=== PATIENT | female | born 1975 | race Caucasian/White ===

== ENCOUNTER 2020-09-18 07:32 | Outpatient (REF) | payer OTHER, SELFPAY ==
--- NOTE | ~2020-09-18 | MM_ITS ---
EXAMINATION: MM SCREENING DIGITAL BREAST TOMOSYNTHESIS, BILATERAL CLINICAL INFORMATION: Screening. Asymptomatic. The lifetime risk of breast cancer based on the Tyrer-Cuzick Model is 11%. COMPARISON: Mammography: September 13, 2019 and studies dating back to August 27, 2009 TECHNIQUE: Digital breast tomosynthesis is performed in both the craniocaudal and mediolateral oblique views along with computer-aided detection (CAD). Synthesized 2D images are generated from the tomosynthesis. FINDINGS: There are scattered areas of fibroglandular density (ACR BI-RADS breast composition Category b). There are no significant masses, abnormal calcifications, or other abnormalities. MM/MM tomosynthesis screening BI IMPRESSION: There are no significant changes from prior study. ASSESSMENT: BI-RADS 1: Negative RECOMMENDATION: Routine annual mammography screening. This patient's information was entered into a reminder system with a target due date for their next mammogram.
== END 2020-09-18 07:33 | disposition home or self-care (01) ==
LOC: HO.MAMMO 07:32
PROVIDERS: PCP Physician Assistant; Visit Provider Physician Assistant
DX: Z12.31 Encounter for screening mammogram for malignant neoplasm of breast (principal)
CPT/HCPCS: 77063; 77067

== ENCOUNTER → 2020-11-18 08:26 | Outpatient (BNVA) | payer OTHER, SELFPAY | PROVIDERS: PCP Physician Assistant; Visit Provider Advanced Practice Midwife ==

== ENCOUNTER 2021-02-05 08:52 | Outpatient (REF) | payer OTHER, SELFPAY ==
[2021-02-05 09:31] LABS: MANUAL DIFF FLAG NO
[2021-02-05 09:33] LABS: Basophils Percent Auto 0.5 % (0-2); Eosinophils Absolute Auto 0.1 X10*3/uL (0.0-0.4); Eosinophils Percent Auto 2.1 % (0-4); Hematocrit 41.2 % (37-47); Hemoglobin 13.5 g/dl (12.0-16.0); Imm Gran Abs Auto 0.01 X10*3/uL (0.00-0.03); Imm Gran Pct Auto 0.2 % (0.0-0.4); Lymphocytes Absolute Auto 0.9 X10*3/uL (1.2-4.9); Lymphocytes Percent Auto 16.2 % (20-40); Mean Corpuscular HGB Conc 32.8 g/dl (31.0-35.0); Mean Corpuscular Hemoglobin 29.7 pg (27.0-33.0); Mean Corpuscular Volume 90.5 fL (80-98); Mean Platelet Volume 11.8 fL (9.4-12.3); Monocytes Absolute Auto 0.3 X10*3/uL (0.1-1.2); Monocytes Percent Auto 4.8 % (2-11); Neutrophils Absolute Auto 4.3 X10*3/uL (2.0-8.3); Neutrophils Percent Auto 76.2 % (45-73); Platelet Count 159 X10*3/uL (160-400); Red Blood Count 4.55 X10*6/uL (4.20-5.50); Red Cell Distribution Width 12.8 % (11.0-16.0); White Blood Count 5.7 X10*3/uL (4.8-10.8)
[2021-02-05 11:12] LABS: Alanine Aminotransferase 14 U/L (0-31); Albumin Level 4.4 g/dL (3.5-5.0); Alkaline Phosphatase 77 U/L (39-117); Anion Gap 14 (12-20); Aspartate Amino Transferase 14 U/L (5-31); Bilirubin Total 0.8 mg/dL (0.0-1.0); Blood Urea Nitrogen 20 mg/dL (9-16); Calcium 9.6 mg/dL (8.4-10.2); Carbon Dioxide 26 mmol/L (22-29); Chloride 105 mmol/L (96-108); Cholesterol 287 mg/dL; Estimated Glomerular Filt Rate > 60; Glucose Random 103 mg/dL (60-115); HDL Cholesterol 80 mg/dL; LDL Cholesterol Calculated 186 mg/dl; Potassium 4.4 mmol/L (3.3-5.1); Sodium 141 mmol/L (135-145); Total Protein 7.3 g/dL (6.5-8.0); Triglycerides 108 mg/dL
[2021-02-05 11:13] LABS: Thyroid Stimulating Hormone 1.18 uIU/mL (0.32-4.0)
== END 2021-02-05 08:53 | disposition home or self-care (01) ==
LOC: HO.LAB 08:52
PROVIDERS: PCP Physician Assistant; Visit Provider Physician Assistant
DX: Z00.00 Encounter for general adult medical examination without abnormal findings (principal); E03.9 Hypothyroidism, unspecified
CPT/HCPCS: 36415; 80053; 80061; 84443; 85025

== ENCOUNTER 2021-02-06 12:18 | Outpatient (REF) | payer OTHER, SELFPAY ==
[2021-02-06 14:14] LABS: Glucose Urine UA NEG (NEG); Leukocyte Esterase Urine TRACE (NEG); Nitrite Urine NEG (NEG); UACC Culture Trigger YES; Urine Blood TRACE (NEG); Urine Ketones NEG (NEG); Urine Protein NEG (NEG-TRACE)
[2021-02-06 14:18] LABS: Appearance Urine CLEAR; Color Urine YELLOW
[2021-02-06 14:41] LABS: Bacteria Urine 4+ /LPF; RBC Urine 0-2 /HPF (0); Squamous Epithelial Cell Urine TRACE /LPF
== END 2021-02-06 12:19 | disposition home or self-care (01) ==
LOC: HO.LAB 12:18
PROVIDERS: PCP Physician Assistant; Visit Provider Physician Assistant
DX: N39.0 Urinary tract infection, site not specified (principal)
CPT/HCPCS: 81001; 81003; 87086; 87088; 87186

== ENCOUNTER 2021-05-25 07:48 | Outpatient (REF) | payer OTHER, SELFPAY ==
[2021-05-25 09:02] LABS: Alanine Aminotransferase 27 U/L (0-31); Aspartate Amino Transferase 24 U/L (5-31); Cholesterol 230 mg/dL; HDL Cholesterol 76 mg/dL; LDL Cholesterol Calculated 137 mg/dl; Triglycerides 86 mg/dL
[2021-05-25 09:03] LABS: Estimated Average Glucose 100 mg/dL; Hemoglobin A1c % 5.1 %
== END 2021-05-25 07:49 | disposition home or self-care (01) ==
LOC: HO.LAB 07:48
PROVIDERS: Visit Provider Physician Assistant
DX: E78.5 Hyperlipidemia, unspecified (principal); R73.9 Hyperglycemia, unspecified
CPT/HCPCS: 36415; 80061; 83036; 84450; 84460

== ENCOUNTER 2021-09-29 16:48 | Outpatient (REF) | payer OTHER, SELFPAY ==
[2021-09-29 17:59] LABS: Lithium 0.22 mmol/L (0.60-1.20)
[2021-09-29 18:06] LABS: Blood Urea Nitrogen 21 mg/dL (9-16); Estimated Glomerular Filt Rate > 60
== END 2021-09-29 16:49 | disposition home or self-care (01) ==
LOC: HO.LAB 16:48
PROVIDERS: Visit Provider Psychiatry & Neurology Psychiatry
DX: E03.9 Hypothyroidism, unspecified (principal); Z51.81 Encounter for therapeutic drug level monitoring; Z79.899 Other long term (current) drug therapy
CPT/HCPCS: 36415; 80178; 82565; 84443; 84520

== ENCOUNTER 2021-12-30 09:27 | Outpatient (REF) | payer OTHER, SELFPAY ==
[2021-12-31 08:38] LABS: BV Int Neg Control Negative (Negative); BV Int Pos Control Positive (Positive)
[2022-01-07 06:46] LABS: HPV mRNA E6/E7 rflx Not Detected (Not Detected)
== END 2021-12-30 09:28 | disposition home or self-care (01) ==
LOC: HO.LAB 09:27
PROVIDERS: Visit Provider Advanced Practice Midwife
DX: Z01.419 Encounter for gynecological examination (general) (routine) without abnormal findings (principal); Z11.51 Encounter for screening for human papillomavirus (HPV); N89.8 Other specified noninflammatory disorders of vagina
CPT/HCPCS: 87480; 87491; 87510; 87591; 87624; 87660; 88142

== ENCOUNTER 2022-01-19 07:42 | Outpatient (REF) | payer OTHER, SELFPAY ==
--- NOTE | ~2022-01-19 | MM_ITS ---
EXAMINATION: MM SCREENING DIGITAL BREAST TOMOSYNTHESIS, BILATERAL CLINICAL INFORMATION: Screening. Asymptomatic. The lifetime risk of breast cancer based on the Tyrer-Cuzick Model is 10%. COMPARISON: Mammography: 09/18/2020, 09/13/2019, 09/05/2018 TECHNIQUE: Digital breast tomosynthesis is performed in both the craniocaudal and mediolateral oblique views along with computer-aided detection (CAD). Synthesized 2D images are generated from the tomosynthesis. Additional left MLO view is provided. FINDINGS: There are scattered areas of fibroglandular density (ACR BI-RADS breast composition Category b). There are no significant masses, abnormal calcifications, or other abnormalities. Parenchymal pattern is similar to prior studies. MM/MM tomosynthesis screening BI IMPRESSION: No mammographic evidence of malignancy. ASSESSMENT: BI-RADS 1: Negative RECOMMENDATION: Routine annual mammography screening. This patient's information was entered into a reminder system with a target due date for their next mammogram.
== END 2022-01-19 07:43 | disposition home or self-care (01) ==
LOC: HO.MAMMO 07:42
PROVIDERS: Visit Provider Physician Assistant
DX: Z12.31 Encounter for screening mammogram for malignant neoplasm of breast (principal)
CPT/HCPCS: 77063; 77067

== ENCOUNTER 2022-04-22 08:07 | Outpatient (REF) | payer OTHER, SELFPAY ==
[2022-04-22 08:30] LABS: MANUAL DIFF FLAG NO
[2022-04-22 08:47] LABS: Basophils Absolute Auto 0.1 X10*3/uL (0.0-0.2); Basophils Percent Auto 0.8 % (0-2); Eosinophils Absolute Auto 0.2 X10*3/uL (0.0-0.4); Eosinophils Percent Auto 2.9 % (0-4); Hematocrit 38.7 % (37.0-47.0); Hemoglobin 12.2 g/dl (12.0-16.0); Imm Gran Abs Auto 0.02 X10*3/uL (0.00-0.03); Imm Gran Pct Auto 0.3 % (0.0-0.4); Lymphocytes Percent Auto 15.1 % (20-40); Mean Corpuscular HGB Conc 31.5 g/dl (31.0-35.0); Mean Corpuscular Hemoglobin 27.2 pg (27.0-33.0); Mean Corpuscular Volume 86.4 fL (80.0-98.0); Mean Platelet Volume 11.8 fL (9.4-12.3); Monocytes Absolute Auto 0.4 X10*3/uL (0.1-1.2); Monocytes Percent Auto 5.6 % (2-11); Neutrophils Percent Auto 75.3 % (45-73); Platelet Count 190 X10*3/uL (160-400); Red Blood Count 4.48 X10*6/uL (4.20-5.50); Red Cell Distribution Width 14.8 % (11.0-16.0); White Blood Count 6.6 X10*3/uL (4.8-10.8)
[2022-04-22 09:51] LABS: Alanine Aminotransferase 12 U/L (0-31); Albumin Level 4.2 g/dL (3.5-5.0); Alkaline Phosphatase 81 U/L (39-117); Anion Gap 16 (12-20); Aspartate Amino Transferase 14 U/L (5-31); Bilirubin Total 0.4 mg/dL (0.0-1.0); Blood Urea Nitrogen 18 mg/dL (9-16); Calcium 9.2 mg/dL (8.4-10.2); Carbon Dioxide 23 mmol/L (22-29); Chloride 106 mmol/L (96-108); Cholesterol 222 mg/dL; Estimated Glomerular Filt Rate > 60; Glucose Random 107 mg/dL (60-115); HDL Cholesterol 75 mg/dL; LDL Cholesterol Calculated 121 mg/dl; Potassium 4.6 mmol/L (3.3-5.1); Sodium 140 mmol/L (135-145); Total Protein 7.1 g/dL (6.5-8.0); Triglycerides 132 mg/dL
[2022-04-22 10:15] LABS: TSH reflex Free T4 3.32 uIU/mL (0.32-4.0)
== END 2022-04-22 08:08 | disposition home or self-care (01) ==
LOC: HO.LAB 08:07
PROVIDERS: PCP Physician Assistant; Visit Provider Physician Assistant
DX: Z00.00 Encounter for general adult medical examination without abnormal findings (principal); E78.5 Hyperlipidemia, unspecified; E03.9 Hypothyroidism, unspecified; R73.9 Hyperglycemia, unspecified
CPT/HCPCS: 36415; 80053; 80061; 84443; 85025

== ENCOUNTER 2022-05-10 07:21 | Outpatient (REF) | payer OTHER, SELFPAY ==
--- NOTE | ~2022-05-10 | XR_ITS ---
EXAMINATION: XR KNEES, BILATERAL STANDING AP XR KNEE, RIGHT CLINICAL INFORMATION: Knee pain COMPARISON: None TECHNIQUE: Bilateral standing AP view of both knees is performed along with lateral and axial patella views of the right knee. FINDINGS: Right: No fracture, dislocation, destructive process. Normal bony mineralization. No joint narrowing or erosive change or chondrocalcinosis. Axial view patella shows no lateralization or joint narrowing. There is a probable small suprapatellar effusion with mild thickening of the suprapatellar bursa. Hoffa's fat pad appears normal. Left: No fracture, dislocation, or destructive process. Normal bony mineralization. No joint narrowing, erosive change, or chondrocalcinosis. XR/XR knee RT 2V IMPRESSION: Right: -Suspect small suprapatellar effusion. -No joint narrowing or erosive change. Left: -Unremarkable.
--- NOTE | ~2022-05-10 | XR_ITS ---
EXAMINATION: XR KNEES, BILATERAL STANDING AP XR KNEE, RIGHT CLINICAL INFORMATION: Knee pain COMPARISON: None TECHNIQUE: Bilateral standing AP view of both knees is performed along with lateral and axial patella views of the right knee. FINDINGS: Right: No fracture, dislocation, destructive process. Normal bony mineralization. No joint narrowing or erosive change or chondrocalcinosis. Axial view patella shows no lateralization or joint narrowing. There is a probable small suprapatellar effusion with mild thickening of the suprapatellar bursa. Hoffa's fat pad appears normal. Left: No fracture, dislocation, or destructive process. Normal bony mineralization. No joint narrowing, erosive change, or chondrocalcinosis. XR/XR knee standing BI IMPRESSION: Right: -Suspect small suprapatellar effusion. -No joint narrowing or erosive change. Left: -Unremarkable.
== END 2022-05-10 07:22 | disposition home or self-care (01) ==
LOC: HO.HOSX 07:21
PROVIDERS: Visit Provider Physician Assistant
DX: M25.561 Pain in right knee (principal); M25.562 Pain in left knee
CPT/HCPCS: 73560; 73565

== ENCOUNTER 2022-08-05 09:30 | Outpatient (RCR) | payer OTHER, SELFPAY ==
--- NOTE | 2022-06-25 16:16 | MHC.OT.EP ---
[address] [phone] Occupational Therapy Plan of Care Date of Evaluation: 06/25/22 Diagnosis: Left lateral epicondylits Assessment: Pt is a 46 yo female with a recent onset of left elbow pain carrying a heavy bag down by her side. Today she presents with S+S consistent with her diagnosis of lateral epicondylitis. She reports some improvement in pain with Naproxen however prefers not taking medication She reports an ergonomic set up with her work station that sounds appropriate and she is unable to identify any specific aggravating activity Her goal is to sleep thru the night without elbow pain She will benefit from OT to address these problems Frequency and Duration: The patient will be seen 3x wk x 4 wks Short Term Goals: Demo awareness of elbow protection techniques with daily activities Demo indep with HEP Tolerate eccentric wrist extension ther ex Report mild difficulty with sleeping with use on night pillow splint Prison Goals: Dec left elbow pain to occassional Left devulcanizer loader strength to > 40 lb Sleep not interrupted with elbow pain Use of left hand to wash back and fasten bra Treatment Plan: Therapeutic Exercise Therapeutic Activity Home Exercise Program Patient Education ADL Training Ultrasound Iontophoresis Soft Tissue Mobilization Pt on vacation Electronically Signed By: Kathe Garcia OT CHT CLT Please Sign and return to therapist. Thank you once again for your referral.
--- NOTE | 2022-08-05 10:34 | MHC.OT.DC ---
[address] [phone] F: [phone] Occupational Therapy Discharge Note Provider: Truman Abdi Diagnosis: Left lateral epicondylits Date of Surgery: Date of Evaluation: 06/25/22 Date of Discharge: 08/05/22 Treatments to Date: 8 Cancellations to Date: 0 No Shows to Date: 0 Discharge Status: Achieved Goals Improved Function Independent with HEP Discharge Summary: Pain improving. Pt is indep with her HEP and self management technique. Left elbow pain continues to be aggravated with reach and talent consultant or pinching Goals met for pain , talent consultant strength , indep and tolerance with eccentric strengthening exercises and elbow protection with daily activities I anticipate continued improvement with pt self management. Electronically Signed By: Kathe Garcia OT CHT CLT Reviewed/agree with student documentation: N/A Therapist: Please Sign and return to therapist, thank you for your referral.
== END 2022-08-05 10:35 | disposition home or self-care (01) ==
LOC: HO.OT 09:30
PROVIDERS: PCP Physician Assistant; Visit Provider Physician Assistant
DX: M77.12 Lateral epicondylitis, left elbow (principal)
CPT/HCPCS: 97033; 97035; 97110; 97140; 97165

== ENCOUNTER 2022-10-29 13:13 | Outpatient (REF) | payer OTHER, SELFPAY ==
[2022-10-30 11:34] LABS: BV Int Neg Control Negative (Negative); BV Int Pos Control Positive (Positive)
== END 2022-10-29 13:14 | disposition home or self-care (01) ==
LOC: HO.LNP 13:13
PROVIDERS: PCP Physician Assistant; Visit Provider Advanced Practice Midwife
DX: R10.2 Pelvic and perineal pain (principal); N89.8 Other specified noninflammatory disorders of vagina
CPT/HCPCS: 87480; 87510; 87660

== ENCOUNTER 2023-02-01 08:56 | Outpatient (AMB) | payer OTHER, SELFPAY ==
--- NOTE | 2023-02-01 08:58 | A.OFFVIS_ITS ---
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 Scribed for DELANO Talavera by Krissy Humphrey behavioral medical director, on 02/01/2023 at 9:11 am EST. Brine Plant Operator: Brine Plant Operator Present (Caren) Allergies No Known Allergies [No Known Allergies*] Allergy (Verified 02/01/23 08:59) Is last menstrual period known: Yes Last menstrual period: 01/11/23 HPI HPI Comments History of Present Illness Details She is a premenopausal woman presenting for annual exam. She reports external itching, and rash under her breasts. Patient admits she tries to eat a healthy diet including Calcium and Vitamin D. She stays active with exercise. Currently not sexually active, Doing well with OCP's and wants to continue with use. Denies family hx of colon and ovarian cancer. Last pap smear 12/30/21. Last mammogram 01/19/22. Cologaurd recently done. She denies any contraindications to control such as: migraines with aura, history of DVT or pulmonary emboli, high blood pressure, liver disease, thrombolic disorders, Lupus, +ALICE, or smoking. Reviewed use, side effects and warnings including ACHES. PFSH Medical History ADHD Anemia History of depression Hypothyroid Surgical History Hx of section S/P anal fissurectomy Family History Family/Other Breast cancer Social History Household Members: Spouse and Family Household Members Other:: , and twins Alcohol intake: never Patient Tobacco Use Status: Never used Tobacco Sexual orientation: Straight/Heterosexual Gender identity: Female Female Reproductive History Menstrual Age of Menarche: 9 Date of last menstrual period: 01/11/23 control method: pills Total pregnancies: 1 Number of Living Children: 2 Multiple births: 1 Date of last pap smear: 12/30/21 (neg pap and hpv) Date of Mammogram: 01/19/22 Physical Exam Vital Signs: Last Vital Signs BP 100/60 02/01/23 08:59 BMI result Body Mass Index 39.1 Const General: cooperative, healthy appearing, no acute distress, well developed and alert Orientation/consciousness: patient oriented x3 HEENT Head: Yes normal to inspection Eyes General: appearance normal, both eyes and all related structures Neck Neck: Yes normal visual inspection Thyroid: Thyroid normal Chest Other: fungal rash under each breast Chest palpation & inspection: normal inspection of the chest Breast/axilla inspection: normal inspection of the breasts (no puckering, dimpling, peau de orange, retraction, discharge, masses) Breast/axilla palpation: normal palpation of the breasts Resp Effort & Inspection: normal respiratory effort GI Inspection: Yes normal to inspection Palpation (GI): Soft to palpation (to palpation) Rectal Exam - Female: deferred Other: labial fungal rash General: Yes bladder normal to inspection External Female Exam: normal external appearance and normal appearance of the urethra Speculum Exam - Vagina: normal appearance of the vagina, normal palpation and abnormal vaginal discharge yellow (creamy) Speculum Exam - Cervix: normal appearance of the cervix and normal palpation Bimanual exam- vagina & uterus: normal palpation and normal palpation Bimanual Exam- Adnexa, other: normal adnexae and no masses Skin General skin exam: no rashes or lesions noted Neuro General: patient oriented x3 Cognition (Neuro): normal cognition Extrem General: Yes normal to inspection Psych Attitude: cooperative Thought process: Normal thought process present Assessment & Plan Assessment & Plan (1) Encounter for annual routine gynecological examination: Code(s): Z01.419 - Encounter for gynecological examination (general) (routine) without abnormal findings Plan: Discussed: Current recommendations for pap smears per ASCCP guidelines Breast awareness and periodic self breast exams. Maintaining a healthy lifestyle including a well balanced diet and routine exercise. Continue BC. Advised to clean with water only, no soaps to the area, dry well and wear cotton underwear. Rx. medication. BV testing done today. Await results and treat accordingly. All of her questions and concerns were addressed to the best of my ability. RTO in one year for AG. (2) Contraceptive surveillance: Code(s): Z30.40 - Encounter for surveillance of contraceptives, unspecified Orders: Orders Bacterial Vaginosis Panel Today N89.8 - Other specified noninflammatory disorders of vagina Medications: New clotrimazole-betamethasone 1-0.05 % 1 appl topical BID PRN 45 grams 2RF itching 7 days Refilled norethindrone-ethin estradiol 0.4-35 mg-mcg dispense 3 packs at a time 1 tab PO DAILY 84 tabs 4RF 84 days Coding Level of Care Code Est Pt Prev Care 40-64y(57861) Diagnoses Encounter for annual routine gynecological examination Z01.419 Contraceptive surveillance Z30.40
[2023-02-01 08:59] VITALS: BP 100/60; BMI 39.1
== END 2023-02-01 09:34 | disposition home or self-care (01) ==
LOC: HO.HWS 08:56
PROVIDERS: PCP Physician Assistant; Visit Provider Advanced Practice Midwife
DX: Z01.419 Encounter for gynecological examination (general) (routine) without abnormal findings (principal)
CPT/HCPCS: 99396

== ENCOUNTER 2023-02-01 08:56 | Outpatient (REF) | payer OTHER, SELFPAY ==
[2023-02-02 14:54] LABS: BV Int Neg Control Negative (Negative); BV Int Pos Control Positive (Positive)
== END 2023-02-01 08:57 | disposition home or self-care (01) ==
LOC: HO.LAB 08:56
PROVIDERS: PCP Physician Assistant; Visit Provider Advanced Practice Midwife
DX: Z01.419 Encounter for gynecological examination (general) (routine) without abnormal findings (principal); N89.8 Other specified noninflammatory disorders of vagina; R21 Rash and other nonspecific skin eruption
CPT/HCPCS: 87480; 87510; 87660

== ENCOUNTER 2023-04-13 08:27 | Outpatient (REF) | payer OTHER, SELFPAY | END 2023-04-13 08:28 | disposition home or self-care (01) | LOC: HO.MAMMO 08:27 | PROVIDERS: PCP Physician Assistant; Visit Provider Physician Assistant | DX: Z12.31 Encounter for screening mammogram for malignant neoplasm of breast (principal) | CPT/HCPCS: 77063; 77067 ==

== ENCOUNTER → 2023-04-13 08:30 | Outpatient (BNV) | payer OTHER, SELFPAY | PROVIDERS: PCP Physician Assistant; Visit Provider Radiology Diagnostic Radiology | DX: Z12.31 Encounter for screening mammogram for malignant neoplasm of breast (principal) | CPT/HCPCS: 77063; 77067 ==

== ENCOUNTER 2023-05-11 08:05 | Outpatient (REF) | payer OTHER, SELFPAY ==
[2023-05-11 08:50] LABS: MANUAL DIFF FLAG NO
[2023-05-11 09:05] LABS: Basophils Percent Auto 0.6 % (0-2); Eosinophils Absolute Auto 0.2 X10*3/uL (0.0-0.4); Hematocrit 42.3 % (37.0-47.0); Hemoglobin 13.3 g/dl (12.0-16.0); Imm Gran Abs Auto 0.01 X10*3/uL (0.00-0.03); Imm Gran Pct Auto 0.2 % (0.0-0.4); Lymphocytes Absolute Auto 0.9 X10*3/uL (1.2-4.9); Lymphocytes Percent Auto 14.1 % (20-40); Mean Corpuscular HGB Conc 31.4 g/dl (31.0-35.0); Mean Corpuscular Hemoglobin 28.9 pg (27.0-33.0); Mean Platelet Volume 11.5 fL (9.4-12.3); Monocytes Absolute Auto 0.3 X10*3/uL (0.1-1.2); Monocytes Percent Auto 4.6 % (2-11); Neutrophils Absolute Auto 4.9 x10*3/uL (2.0-8.3); Neutrophils Percent Auto 77.5 % (45-73); Platelet Count 176 X10*3/uL (160-400); Red Cell Distribution Width 13.3 % (11.0-16.0); White Blood Count 6.3 X10*3/uL (4.8-10.8)
[2023-05-11 10:02] LABS: Alanine Aminotransferase 19 U/L (0-31); Albumin Level 4.3 g/dL (3.5-5.0); Alkaline Phosphatase 79 U/L (39-117); Anion Gap 16 (12-20); Aspartate Amino Transferase 17 U/L (5-31); Bilirubin Total 0.6 mg/dL (0.0-1.0); Blood Urea Nitrogen 16 mg/dL (9-16); Calcium 9.7 mg/dL (8.4-10.2); Carbon Dioxide 25 mmol/L (22-29); Chloride 105 mmol/L (96-108); Cholesterol 302 mg/dL (<200); Estimated Glomerular Filt Rate > 60; Glucose Random 110 mg/dL (60-115); HDL Cholesterol 87 mg/dL (>40); LDL Cholesterol Calculated 186 mg/dL (<100); Potassium 4.5 mmol/L (3.3-5.1); Sodium 141 mmol/L (135-145); Total Protein 7.5 g/dL (6.5-8.0); Triglycerides 149 mg/dL (<150)
[2023-05-11 10:19] LABS: Vitamin B12 424 pg/mL (200-900)
[2023-05-11 10:21] LABS: Thyroid Stimulating Hormone 2.48 uIU/mL (0.32-4.0)
[2023-05-11 10:23] LABS: Appearance Urine Clear; Color Urine Yellow; Glucose Urine UA Negative (Negative); Leukocyte Esterase Urine Small (1+) (Negative); Nitrite Urine Negative (Negative); PH 5.5 (5.0-9.0); Specific Gravity - Urine 1.025 (1.005-1.025); UMIC TRIGGER UA YES; Urine Blood Trace (Negative); Urine Ketones Negative (Negative); Urine Protein Negative (Neg-Trace)
[2023-05-11 10:39] LABS: Bacteria Urine None Seen (None Seen); Hyaline Casts Urine 0-2 /LPF (0-2); RBC Urine 0-2 /HPF (0-2); WBC Urine 0-5 /HPF (0-5)
== END 2023-05-11 08:06 | disposition home or self-care (01) ==
LOC: HO.LAB 08:05
PROVIDERS: PCP Physician Assistant; Visit Provider Physician Assistant
DX: Z00.00 Encounter for general adult medical examination without abnormal findings (principal); R53.83 Other fatigue; E03.9 Hypothyroidism, unspecified
CPT/HCPCS: 36415; 80053; 80061; 81001; 82607; 84443; 85025

== ENCOUNTER 2023-08-02 08:09 | Outpatient (REF) | payer OTHER, SELFPAY ==
[2023-08-02 09:44] LABS: Alanine Aminotransferase 23 U/L (0-31); Aspartate Amino Transferase 21 U/L (5-31); Cholesterol 208 mg/dL (<200); HDL Cholesterol 81 mg/dL (>40); LDL Cholesterol Calculated 110 mg/dL (<100); Triglycerides 87 mg/dL (<150)
[2023-08-02 10:01] LABS: Thyroid Stimulating Hormone 3.78 uIU/mL (0.32-4.0)
== END 2023-08-02 08:10 | disposition home or self-care (01) ==
LOC: HO.LAB 08:09
PROVIDERS: Visit Provider Physician Assistant
DX: E03.9 Hypothyroidism, unspecified (principal); E78.5 Hyperlipidemia, unspecified
CPT/HCPCS: 36415; 80061; 84443; 84450; 84460

== ENCOUNTER 2023-10-11 09:58 | Outpatient (AMB) | payer OTHER, SELFPAY ==
--- NOTE | 2023-10-11 10:03 | A.OFFVIS_ITS ---
Intake Vital Signs 10/11/23 10:04 Height 5 ft 3 in Weight 228 lb BMI 40.4 BP 94/60 Intake Visit Reasons: itchy Logistics And Planning Manager: Logistics And Planning Manager Present (Caren) Allergies No Known Allergies [No Known Allergies*] Allergy (Verified 10/11/23 10:04) HPI HPI Comments History of Present Illness Details Patient is here today with external itching, she denies any recent antibiotics or soap changes. Not currently sexually active. Denies any pelvic pain or urinary symptoms. PFSH Medical History ADHD Anemia History of depression Hypothyroid Surgical History S/P anal fissurectomy Hx of section Family History Family/Other Breast cancer Social History Household Members: Spouse and Family Household Members Other:: , and twins Alcohol intake: never Patient Tobacco Use Status: Never used Tobacco Sexual orientation: Straight/Heterosexual Gender identity: Female Female Reproductive History Menstrual Age of Menarche: 9 Review of Systems Const All systems reviewed & are unremarkable except as noted in HPI and below Physical Exam Vital Signs: Last Vital Signs BP 94/60 10/11/23 10:04 BMI result Body Mass Index 40.4 Const General: cooperative, healthy appearing and no acute distress Orientation/consciousness: patient oriented x3 GI Inspection: Yes normal to inspection Palpation (GI): Soft to palpation and Other GI palpation findings present (Nontender) Rectal Exam - Female: visual inspection normal Other: Vulva erythema appearance of a fungal rash extending to perianal region General: Yes bladder normal to palpation External Female Exam: normal appearance of the urethra Speculum Exam - Vagina: normal appearance of the vagina, normal palpation and normal vaginal discharge Speculum Exam - Cervix: normal appearance of the cervix and normal palpation Bimanual exam- vagina & uterus: normal bimanual exam, normal palpation, uterine size normal, bladder normal to palpation, normal palpation, uterine shape normal and non-tender Bimanual Exam- Adnexa, other: normal adnexae Neuro General: patient oriented x3 Assessment & Plan Assessment & Plan (1) Vulvar pruritus: Code(s): L29.2 - Pruritus vulvae Plan Instructions: Clean with warm water, no soaps, scented products. Use a cool cloth to the area several times a day if swollen and/or uncomfortable. Wear loose, cotton underclothes, avoid tight outer clothing. Air when possible. No coitus until well healed. Complete all medications as prescribed. Await final pending results for any changes in the plan of care. Call the office if there is no improvement in 24-48hrs., or if worsening symptoms. All of her questions and concerns were addressed to the best of my ability and shared decision making. She is agreeable to the plan of care. This note is constructed using voice recognition software. While every effort has been made to ensure accuracy, carpenter streetcar errors may have been included. Orders: Orders Bacterial Vaginosis Panel Today L29.2 - Pruritus vulvae Medications: Changed From clotrimazole-betamethasone 1-0.05 % 1 appl topical BID 7 days PRN 45 grams 2RF itching To clotrimazole-betamethasone 1-0.05 % 1 appl topical BID 45 grams 0RF itching 7 days Coding Level of Care Code Est Pt Level 3 (01218) Diagnoses Vulvar pruritus L29.2
[2023-10-11 10:04] VITALS: BP 94/60; BMI 40.4
== END 2023-10-11 10:29 | disposition home or self-care (01) ==
PROVIDERS: PCP Physician Assistant; Visit Provider Advanced Practice Midwife
DX: L29.2 Pruritus vulvae (principal)
CPT/HCPCS: 99213

== ENCOUNTER 2023-10-11 09:58 | Outpatient (REF) | payer OTHER, SELFPAY ==
[2023-10-12 13:08] LABS: BV Int Neg Control Negative (Negative); BV Int Pos Control Positive (Positive)
== END 2023-10-11 09:59 | disposition home or self-care (01) ==
LOC: HO.LNP 09:58
PROVIDERS: PCP Physician Assistant; Visit Provider Advanced Practice Midwife
DX: L29.2 Pruritus vulvae (principal)
CPT/HCPCS: 87480; 87510; 87660

== ENCOUNTER 2024-02-16 08:52 | Outpatient (AMB) | payer OTHER, SELFPAY ==
--- NOTE | 2024-02-16 08:54 | A.OFFVIS_ITS ---
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 She is doing well with concerns: itching, thinks it's BV, concerned it occurs often. Doing well on [place], wants to continue. She denies any contraindications to control such as: migraines with aura, history of DVT or pulmonary emboli, high blood pressure, liver disease, thrombolic disorders, Lupus, +ALICE, breast cancer, or smoking. Attempting to eat a healthy diet with calcium and vitamin D and stays active with exercise at the [facility]. Currently not sexually active. Last pap smear; 2021. Last mammogram; 2022. Denies any family history of breast, ovarian or colon cancer. [facility] Medical History (Updated 02/16/24 @ 09:47 by Darshana Bruno CNM) ADHD Anemia History of depression Hypothyroid Surgical History S/P anal fissurectomy Hx of section Family History Family/Other Breast cancer Social History Household Members: Spouse and Family Household Members Other:: , and twins Alcohol intake: never Patient Tobacco Use Status: Never used Tobacco Sexual orientation: Straight/Heterosexual Gender identity: Female Female Reproductive History Menstrual Age of Menarche: 9 Duration of menses: 6-7 days Date of last menstrual period: 02/07/24 control method: pills Total pregnancies: 1 Number of Living Children: 2 Multiple births: 1 Date of last pap smear: 12/30/21 (neg pap and hpv) Date of Mammogram: 04/13/23 (Birad 1) Review of Systems Const All systems reviewed & are unremarkable except as noted in HPI and below Reports as per HPI Eyes Reports no additional complaints ENT Reports no additional complaints Card Reports no additional complaints Resp Reports no additional complaints GI Reports as per HPI and Reports no additional complaints Reports as per HPI Musc Reports no additional complaints Skin/Breast Reports as per HPI Neuro Reports no additional complaints Psych Reports no additional complaints Endo Reports no additional complaints Db/Lymph Reports no additional complaints Aller/Immun Reports no additional complaints Physical Exam Vital Signs: Last Vital Signs BP 120/70 02/16/24 08:55 BMI result Body Mass Index 40.0 Const General: cooperative, healthy appearing, no acute distress, well developed and alert Orientation/consciousness: patient oriented x3 HEENT Head: Yes normal to inspection Eyes General: appearance normal, both eyes and all related structures Neck Neck: Yes normal visual inspection Thyroid: Thyroid normal Chest Chest palpation & inspection: normal inspection of the chest and other (no puckering, dimpling, peau de orange, retraction, discharge, masses) Breast/axilla inspection: normal inspection of the breasts (With findings right breast small soft rounded lump at 05:00 o'clock, NT) Breast/axilla palpation: normal palpation of the breasts Resp Effort & Inspection: normal respiratory effort GI Inspection: Yes normal to inspection and Yes scar Palpation (GI): Soft to palpation Rectal Exam - Female: deferred General: Yes bladder normal to palpation External Female Exam: normal external appearance and normal appearance of the urethra Speculum Exam - Vagina: normal appearance of the vagina, normal palpation, normal vaginal discharge and vaginal bleeding (Small amount of brown blood at cervix) Speculum Exam - Cervix: normal appearance of the cervix and normal palpation Bimanual exam- vagina & uterus: normal bimanual exam, normal palpation, uterine size normal, bladder normal to palpation, normal palpation and non-tender Bimanual Exam- Adnexa, other: no masses OB/external & speculum: vaginal bleeding (Small amount of brown blood at cervix) Skin General skin exam: no rashes or lesions noted Rashes: no rashes Neuro General: patient oriented x3 Cognition (Neuro): normal cognition Extrem General: Yes normal to inspection Psych Attitude: cooperative Thought process: Normal thought process present Assessment & Plan Assessment & Plan (1) Encounter for well woman exam with routine gynecological exam: Code(s): Z01.419 - Encounter for gynecological examination (general) (routine) without abnormal findings Category: Medical (2) Breast lump on right side at 5 o'clock position: Code(s): N63.14 - Unspecified lump in the right breast, lower inner quadrant Category: Medical (3) Vaginal itching: Code(s): N89.8 - Other specified noninflammatory disorders of vagina Plan Discussed: Current recommendations for pap smears per ASCCP guidelines. Breast awareness, periodic self breast exams and yearly mammogram. Diagnostic mammogram and right breast ultrasound for evaluation of breast lump 5 o'clock position. Follow up pending results. control hormone use warnings: go to ER if and loss of vision, blindness, severe headache, chest pain or difficulty breathing, severe abdominal pain, or any pain or swelling in an extremity. Maintain a healthy lifestyle, well balanced diet including Calcium 1,200 mg and Vitamin D 600 IU daily, and routine exercise. BV panel obtained, await results for plan of care. Reviewed role of probiotics and vaginal health, copy of boric acid protocol provided. Patient verbalizes understanding and agrees to the plan of care. She was given opportunity to ask questions and all questions were answered to the best of my ability. RTO in 1 year for annual computational mathematician exam. This note is constructed using voice recognition software. While every effort has been made to ensure accuracy, hot metal charger errors may have been included. Orders: Orders Bacterial Vaginosis Panel Today N89.8 - Other specified noninflammatory disorders of vagina MM tomosynthesis diag imp RT Today N63.14 - Unspecified lump in the right breast, lower inner quadrant, Z12.31 - Encounter for screening mammogram for malignant neoplasm of breast US breast RT complete Today N63.14 - Unspecified lump in the right breast, lower inner quadrant Medications: Refilled norethindrone-ethin estradiol 0.4-35 mg-mcg dispense 3 packs at a time 1 tab PO DAILY 84 days 84 tabs 4RF Coding Level of Care Code Est Pt Prev Care 40-64y(10296) Diagnoses Encounter for well woman exam with routine gynecological exam Z01.419 Breast lump on right side at 5 o'clock position N63.14 Vaginal itching N89.8
[2024-02-16 08:55] VITALS: BP 120/70; BMI 40.0
== END 2024-02-16 10:02 | disposition home or self-care (01) ==
PROVIDERS: PCP Physician Assistant; Visit Provider Advanced Practice Midwife
DX: Z01.419 Encounter for gynecological examination (general) (routine) without abnormal findings (principal); N63.14 Unspecified lump in the right breast, lower inner quadrant; N89.8 Other specified noninflammatory disorders of vagina
CPT/HCPCS: 99396

== ENCOUNTER 2024-02-16 08:52 | Outpatient (REF) | payer OTHER, SELFPAY ==
[2024-02-17 10:51] LABS: Bacterial Vaginosis PCR NEGATIVE (Negative); Candida Group PCR NOT DETECTED (Not Detect); Candida glab krusei PCR NOT DETECTED (Not Detect); Trichomonas vaginalis PCR NOT DETECTED (Not Detect)
== END 2024-02-16 08:53 | disposition home or self-care (01) ==
LOC: HO.LAB 08:52
PROVIDERS: PCP Physician Assistant; Visit Provider Advanced Practice Midwife
DX: N89.8 Other specified noninflammatory disorders of vagina (principal)
CPT/HCPCS: 0352U

== ENCOUNTER 2024-03-07 13:56 | Outpatient (REF) | payer OTHER, SELFPAY ==
--- NOTE | ~2024-03-07 | MM_ITS ---
EXAMINATION: MM DIAGNOSTIC DIGITAL BREAST TOMOSYNTHESIS, BILATERAL US BREAST LIMITED, RIGHT MAMMOGRAPHY: CLINICAL INFORMATION: 48-year-old female, palpable abnormality right breast 5:00 axis. Patient also due for yearly. COMPARISON: Mammography: 04/13/2023, 01/19/2022, 09/18/2020, 04/05/2019, 03/04/2017. TECHNIQUE: Digital breast tomosynthesis is performed in both the craniocaudal and mediolateral oblique views along with computer-aided detection (CAD). Synthesized 2D images are generated from the tomosynthesis. In addition Full field 3-D right mediolateral view was also obtained. FINDINGS: There are scattered areas of fibroglandular density (ACR BI-RADS breast composition Category b). There are no suspicious masses, suspicious grouped calcifications, or areas of architectural distortion in either breast. The parenchymal pattern is stable from prior exams. There is no skin or axillary abnormality. There is no mammographic abnormality in the lower inner quadrant right breast. ULTRASOUND: CLINICAL INFORMATION: As above. COMPARISON: None contributory. TECHNIQUE: Targeted sonographic evaluation right breast was performed using a high frequency linear transducer. Attention to the lower inner quadrant was given to include the palpable area of concern. Selected archived documentation. FINDINGS: RIGHT BREAST: There is a mixture of fatty and fibroglandular tissue. No suspicious mass is seen. There is no pathologic acoustic shadowing. No cystic abnormality. No ultrasonographic correlate to the focus of palpable concern 5:00 axis right breast. MM/MM tomosynthesis diagnostic BI IMPRESSION: -There are no findings suspicious for malignancy in either breast. -There is no sonographic or mammographic abnormality to correlate with the palpable focus of concern right breast 5:00 axis. Recommend clinical management of follow-up. -Otherwise recommend the patient resume routine annual screening mammography. OVERALL ASSESSMENT: Mammography: BI-RADS 1 - Negative Ultrasound: BI-RADS 1 - Negative RECOMMENDATION: 1. Patient should be managed based on the clinical impression. 2. Otherwise, routine annual screening mammography. This patient's information was entered into a reminder system with a target due date for their next mammogram. Electronically signed by: Kuldeep Logan MD 03/07/2024 03:52 PM EDT
== END 2024-03-07 13:57 | disposition home or self-care (01) ==
LOC: HO.MAMMO 13:56
PROVIDERS: PCP Physician Assistant; Visit Provider Advanced Practice Midwife
DX: N63.14 Unspecified lump in the right breast, lower inner quadrant (principal)
CPT/HCPCS: 76642; 77062; 77066

== ENCOUNTER → 2024-03-07 14:30 | Outpatient (BNV) | payer OTHER, SELFPAY | PROVIDERS: PCP Physician Assistant; Visit Provider Radiology Diagnostic Radiology | DX: N63.13 Unspecified lump in the right breast, lower outer quadrant (principal) | CPT/HCPCS: 76642; 77062; 77066 ==

== ENCOUNTER 2024-12-06 08:19 | Outpatient (AMB) | payer OTHER, SELFPAY ==
--- NOTE | 2024-12-06 08:21 | MHC.PC.OV ---
Vital Signs 12/06/24 08:29 Height 5 ft 3 in Weight 230 lb 6 oz BMI 40.8 BP 118/68 Blood Pressure Location Rt brachial Position Sitting Respiration 12 Pulse 68 Pulse Source Pulse Oximeter Temp 97.2 F Temp Source Oral Pulse Oximetry (%) 99 Oxygen Delivery Method Room Air Intake Visit Reasons: CPE Intake Note: New patient to establish care and cpe Nuclear Medicine Physician Required: No Allergies No Known Allergies [No Known Allergies*] Allergy (Verified 12/06/24 08:22) Medication List - Last Reconciled 12/06/24 by Antonia Jones, [employer] SUPERVISOR- atorvastatin 20 mg PO DAILY lamotrigine 200 mg PO DAILY levothyroxine 150 mcg PO DAILY lisdexamfetamine (Vyvanse) 20 mg PO DAILY lithium carbonate ER 450 mg PO BEDTIME norethindrone-ethin estradiol 0.4-35 mg-mcg 1 tab PO DAILY 84 days sertraline 25 mg PO DAILY sertraline 200 mg PO DAILY Tobacco use date assessed: 12/06/24 Dental Screening Dental Screen Date: 12/06/24 Did you have a dental visit in the last 12 months?: Yes Did you have a dental problem in the last 6 months where you did not have access to dental care?: No Was dental information given to patient?: Patient has dentist HPI HPI Comments History of Present Illness Details 49 y/o F with HLD, hypothyroid, ADHD, Bipolar, anemia, hx of gestational DM, b12 def, lithium use, obesity s/p c section, anal fissure repair Fhx: Dad prostate Ca, etoh HLD, Mom HLD, Brother Etoh Mental hx on paternal side Social: getting a divorce, has Twins (Tohmas and Kate), works at [employer] 02/2024 Pap 2021 Cologaurd 2021, repeat 2024 cologuard ordered PAGE 6 Tdap admin 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 Previous PCP [facility] Internal med Records rec'd and reviewed -Insomnia in the setting of stressors - Reports difficulty sleeping, waking up multiple times, and daytime fatigue. - Noted improvement in sleep with Ashwagandha in powder gel cap form. - History of snoring and weight gain to 230 lbs. Has never had a sleep study. - Manages bipolar disorder and ADHD with medication - active w/ counselor and prescriber. - Concerns about the efficacy of atorvastatin for hyperlipidemia. - Hypothyroid taking levothyroxine Social History - with two children, twins aged 10, one with autism spectrum disorder level 1. - Experiencing family stress due to financial issues and 's pending gender transition. - Previous regular exercise routine disrupted by financial constraints. 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 - Employment-related stress and management of stress through therapy. Review of Systems - General: Reports fatigue and insomnia - Respiratory: Reports snoring - Cardiovascular: Denies chest pain - Gastrointestinal: Denies constipation or diarrhea - Neurological: Reports daytime fatigue - Psychiatric: Reports stress, anxiety, and insomnia. Denies SI/HI - Musculoskeletal: Denies joint pain or swelling - Skin: Reports generalized itching, especially on the sides of hips and scalp, but no rash observed. Physical Exam General: Well developed, well nourished, in no acute distress. Appears stated age. Head: Normocephalic, atraumatic. Eyes: Pupils are equal, round and reactive to light and accommodation. Conjunctivae are clear. Vision grossly normal. Ears: TMs clear AU, EACS WNL. Left ear slightly red, but no pain reported. Pt states she has been picking at it. Nose: Patent, without discharge. Neck: Supple, no adenopathy or thyromegaly. No pain or tenderness noted. Breast: Edu on SBE Lungs: Clear to auscultation bilaterally. No rales, rhonchi or wheeze noted. Good air flow in all teague. Heart: Regular rate and rhythm. No murmurs, click, rubs or gallops are noted. Abdomen: Bowel sounds present in all quadrants. The abdomen is soft, nontender, with no masses or organomegaly noted. No hernias are noted. : Deferred. 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 Extremities: No clubbing, cyanosis nor edema is noted. No swelling at the end of the day. Neurologic: Gait and station normal. Cranial Nerves 2-12 intact. Motor strength grossly symmetrical and intact. No sensory loss. Balance normal. Reports dizziness with position change, but this is normal for the patient. Skin: No rashes, ulcers, or lesions noted. Turgor is good. Skin color is good. Hair and nails are without abnormalities. Psych: Normal eye contact, affect and mood appropriate, and normal interactions. Patient is alert and appropriate to context. Results See below Discussion Notes I discussed with the patient the importance of managing her chronic conditions, including hypothyroidism, bipolar disorder, ADHD, and hyperlipidemia. We explored her current insomnia and its relation to stress, and I emphasized the need to address the underlying causes, such as family and financial stress, to improve sleep quality. I recommended a home sleep study to assess for obstructive sleep apnea, given her reported snoring and weight gain. We also discussed the potential need for adjustments in her medication regimen, particularly the use of atorvastatin, and the benefits of regular monitoring of her cholesterol levels. I advised continuing with her mental health therapy and maintaining regular follow-ups for medication monitoring. I suggested updating her tetanus vaccination and agreed to order another Cologuard screening instead of a colonoscopy at this time. Follow-up planning included further evaluation of her sleep issues, weight management, and medication efficacy. Assessment and Plan 1. Insomnia - Home sleep study ordered. - Continue Ashwagandha. 2. Hypothyroidism - Monitor with levothyroxine. - Check TSH levels. 3. Bipolar Disorder - Continue lamotrigine and lithium. - Regular psychiatric follow-up. 4. ADHD - Continue Vyvanse. - Monitor effectiveness. 5. Hyperlipidemia - Continue atorvastatin. - Evaluate cholesterol efficacy. 6. Weight Management - Encourage exercise. - Discuss overall health impact. 7. Health Maintenance - Update tetanus vaccination. - Order Cologuard screening. - Recommend Derm screening - fair complexion Patient Instructions - Take Ashwagandha in powder form as it helps with sleep. - Continue current medications as prescribed. - Schedule and complete the home sleep study. - Update your tetanus shot today. - Complete the Cologuard screening when it arrives. - Follow up with psychiatric care as needed. - Return for cholesterol and TSH testing as advised in 6 months - Engage in regular exercise when feasible. - Seek help if experiencing increased stress or anxiety. Labs reviewed after patient left; message sent via portal: Ok!! So maybe other reasons you're tired. First, Thyroid is low. Stop the levothyroxine 150 and start 175mcg. We need to repeat TSH in 6 weeks, order is in. You have very low Vitamin D. I have sent in Vitamin d3 2000 IU, take 1 tab daily. You have anemia both iron and low b12. I recommend starting a multivitamin with Iron. I have sent the multivitamin and Vit d to [facility]; they may not pay for this. If thats the case, ok to buy over the counter. and the cholesterol.... needs some help. Please start Titus Bergamot 1000mg. It is available on [employer]. The rest looks good. If you have any questions, please reach out. Frank, Antonia Consent Patient was informed and verbally consented to the use of an ambient scribe for clinic note documentation during this visit. An additional 30 minutes was spent addressing the problem(s) noted at todays visit. This includes time spent before the visit reviewing the chart, time spent during the visit, and time spent after the visit on documentation reviewing laboratory results, diagnostic imaging, medications, performing a medically necessary evaluation, counseling on diagnoses, care coordination, ordering appropriate tests, ordering appropriate medications, review of tests performed by other providers, reporting test results with the patient, communication with other healthcare providers. [facility] Medical History (Updated 12/06/24 @ 14:17 by Antonia Jones, [facility]) ADHD Anemia Anxiety Breast lump on right side at 5 o'clock position History of depression Hypothyroid Lateral epicondylitis, left elbow Patella-femoral syndrome Surgical History History of colonoscopy (~2021) S/P anal fissurectomy Hx of section Family History (Updated 12/06/24 @ 08:35 by Russell Bedoya MA) Family/Other Breast cancer Father Substance abuse Brother Substance abuse Social History (Updated 12/06/24 @ 08:36 by Russell Bedoya MA) Household Members: Spouse and Family Household Members Other:: , and twins Housing: House Are you a primary health care coach to a significant other at home: No Do you presently have visiting nurse or other home services: No Alcohol intake: current Alcohol intake frequency: a few times a month Patient Tobacco Use Status: Never used Tobacco e-Cigarette/Vaping Use: Never Used Second Hand Smoke Exposure: No Current occupational status: employed Current occupation: [employer] Sexual orientation: Straight/Heterosexual Gender identity: Female Cognitive needs: No Hearing needs: No Vision needs: Yes (wear glasses) Female Reproductive History Menstrual Age of Menarche: 9 Questionnaire PHQ-9 Over the last 2 weeks, how often have you been bothered by any of the following problems? 1. Little interest or pleasure in doing things: not at all 2. Feeling down, depressed, or hopeless: several days 3. Trouble falling or staying asleep, or sleeping too much: nearly every day 4. Feeling tired or having little energy: nearly every day 5. Poor appetite or overeating: more than half the days 6. Feeling bad about yourself - or that you are a failure or have let yourself or your family down: several days 7. Trouble concentrating on things, such as reading the newspaper or watching television: not at all 8. Moving or speaking so slowly that other people could have noticed. Or the opposite - being so fidgety or restless that you have been moving around a lot more than usual: not at all 9. Thoughts that you would be better off or of hurting yourself in some way: not at all Total score: 10 Depression Screening Interpretation: Positive Depression Screening Follow-up: Existing condition and In treatment Depression Screening Done: Yes 70842 - PHQ-9 Billing: Yes Source: Developed by Drs. Sinan Stevenson, Kaylene Hudson, Bob Guadarrama and colleagues, with an educational issac from [employer]. Thrive Questionnaire Date Thrive assessed: 12/06/24 I am a: Patient What is your living situation today?: I have a steady place to live Within the past 12 months, did the food you bought not last and you didn't have the money to get more?: Never true Within the past 12 months, did you worry whether your food would run out before you got money to buy more?: Never true Do you have trouble paying for medicines?: No Do you have trouble getting transportation to medical appointments?: No Do you have trouble paying your heating and electricity bill?: No Do you have trouble taking care of your child, family member or friend?: No Do you have trouble with day-to-day activities such as bathing, preparing meals, shopping, managing finances, etc.?: No Are you currently unemployed and looking for a job?: No Are you interested in more education?: No Please select the resources that you would like help with: None Currently or been in a relationship where the following occur: No concerns reported THRIVE Score: 0 AUDIT C Alcohol Use Questionnaire (AUDIT-C) 1. How often do you have a drink containing alcohol?: Monthly or less 2. How many drinks containing alcohol do you have on a typical day when you are drinking?: 1 or 2 3. How often do you have six or more drinks on one occasion?: Never Total Score: 1 Score Reviewed/Action Taken: Yes GAVI-7 AMB Questionnaire GAVI-7 Date GAVI - 7 assessed: 12/06/24 Feeling nervous, anxious, or on edge: 1 = Several days Not being able to stop or control worryin = Several days Worrying too much about different things: 1 = Several days Trouble relaxin = More than half the days Being so restless that it is hard to sit still: 0 = Not at all Becoming easily annoyed or irritable: 1 = Several days Feeling afraid as if something awful might happen: 0 = Not at all Total GAVI-7 score (0-4 normal; 5-9 mild; 10-14 moderate; 15-21 severe): 6 Source: Developed by Drs. Sinan Stevenson, Kaylene Hudson, Bob Guadarrama and colleagues, with an educational issac from [employer]. GAVI-7 Assessment Billing GAVI-7 Assessment Tool: GAVI-7 Assessment 92718 Physical exam (Primary Care) Vital Signs: Last Vital Signs Temp 97.2 F 12/06/24 08:29 Pulse 68 12/06/24 08:29 Resp 12 12/06/24 08:29 BP 118/68 12/06/24 08:29 Pulse Ox 99 12/06/24 08:29 Oxygen Delivery Method Room Air 12/06/24 08:29 BMI result Body Mass Index 40.8 BMI Assessment/Plan discussion: High BMI High, discussed plan: lifestyle Tobacco/Smoking Status: Tobacco use Status Tobacco use date assessed 12/06/24 12/06/24 08:25 Patient Tobacco Use Status Never used Tobacco 12/06/24 08:36 e-Cigarette/Vaping Use Never Used 12/06/24 08:36 PHQ-9: PHQ-9 Score PHQ-9: Total score 10 12/06/24 09:31 Depression Screening Interpretation: Positive Depression Screening Follow-up: Existing condition and In treatment Thrive Assessment: Date of Thrive Assessment Date Thrive assessed 12/06/24 12/06/24 08:22 Currently or been in a relationship where the following occur: No concerns reported Immunizations Boostrix Tdap 2.5 Lf unit-8 mcg-5 Lf/0.5 mL intramuscular syringe Performing Provider: JAYME Thomas Performing Location: [facility] Administered by: Aye Kendrick RN on 12/06/24 09:31 Dose Route Admin Location Dispensed Lot Number Expiration Date [facility] Tab Machine Operator 0.5 mL IM Right Deltoid 0.5 mL [id number] 03/05/27 [id number] [employer] VIS Given Date VIS Provided VIS Publication Date 12/06/24 Single Vaccine 21 Eligibility Eligibility Date Funding Source Not [facility] Eligible 12/06/24 Private Administration Comments: VIS was offered but patient declined. Results Reviewed Results Reviewed: Laboratory Result Units Range Interpretation Provider Comments White Blood Count 7.0 X10*3/uL (4.8-10.8) Red Blood Count 4.54 X10*6/uL (4.20-5.50) Hemoglobin 12.1 g/dl (12.0-16.0) Hematocrit 38.6 % (37.0-47.0) Mean Corpuscular Volume 85.0 fL (80.0-98.0) Mean Corpuscular Hemoglobin 26.7 pg (27.0-33.0) Low Mean Corpuscular Hemoglobin Concent 31.3 g/dl (31.0-35.0) Red Cell Distribution Width 15.7 % (11.0-16.0) Platelet Count 232 X10*3/uL (160-400) Delta Mean Platelet Volume 12.1 fL (9.4-12.3) Nucleated RBC Absolute Count (auto) 0.000 X10*3/uL (0.0-0.012) Nucleated Red Blood Cells % (auto) 0.0 /100WBC (0.0-0.2) Sodium Level 141 mmol/L (135-145) Potassium Level 4.3 mmol/L (3.3-5.1) Chloride Level 108 mmol/L (96-108) Carbon Dioxide Level 24 mmol/L (22-29) Anion Gap 13 (12-20) Blood Urea Nitrogen 20 mg/dL (9-16) High Creatinine 0.84 mg/dL (0.5-1.4) Estimated Creatinine Clearance Calc Not Reportable Estimat Glomerular Filtration Rate > 60 Random Glucose 108 mg/dL (60-115) Estimated Average Glucose 111 mg/dL Hemoglobin A1c Percent 5.5 % (<6.0) Calcium Level 9.6 mg/dL (8.4-10.2) Iron Level 67 mcg/dL (30-160) Total Iron Binding Capacity 539 mcg/dL (228-428) High Percent Iron Saturation 12 % (15-50) Low Unsaturated Iron Binding 472 ug/dL Ferritin 11 ng/mL (10-250) Total Bilirubin 0.6 mg/dL (0.0-1.0) Aspartate Amino Transf (AST/SGOT) 18 U/L (5-31) Alanine Aminotransferase (ALT/SGPT) 14 U/L (0-31) Alkaline Phosphatase 88 U/L (39-117) Total Protein 7.6 g/dL (6.5-8.0) Albumin 4.3 g/dL (3.5-5.0) Triglycerides Level 145 mg/dL (<150) Cholesterol Level 223 mg/dL (<200) High LDL Cholesterol, Calculated 112 mg/dL (<100) High HDL Cholesterol 82 mg/dL (>40) Vitamin B12 Level 311 pg/mL (200-900) 25-Hydroxy Vitamin D Total 14.4 ng/mL (>30) Low Folate 5.0 ng/mL (> or = 4.0) Thyroid Stimulating Hormone (TSH) 4.04 uIU/mL (0.32-4.0) High Free Thyroxine 0.86 ng/dL (0.71-1.85) Urine Creatinine 134.39 mg/dL Urine Microalbumin 10.0 mg/L Urine Microalbumin/Creatinine Ratio 7.4 ug/mg cr (<30) Herbst Level 0.31 mmol/L (0.60-1.20) Low Coding Level of Care Code New Pt Level 3 (72771) New Pt Prev Care 40-64y(76517) Diagnoses Encounter to establish care Z76.89 Obesity, morbid, BMI 40.0-49.9 E66.01 Attention deficit hyperactivity disorder (ADHD), predominantly inattentive type F90.0 Attention deficit-hyperactivity disorder type: predominantly inattentive B12 deficiency E53.8 Bipolar 1 disorder F31.9 History of gestational diabetes Z86.32 History of mammogram Z92.89 History of Papanicolaou smear of cervix Z92.89 Mixed hyperlipidemia E78.2 Hyperlipidemia type: mixed hyperlipidemia Acquired hypothyroidism E03.9 Hypothyroidism type: acquired Hypersomnia G47.10 Snoring R06.83 Herbst use Z79.899 Need for Tdap vaccination Z23 Vitamin D deficiency E55.9 Encounter for general adult medical examination with abnormal findings Z00.01 Additional Codes GAVI-7 Assessment Billing - GAVI-7 Assessment Tool: GAVI-7 Assessment 62697 ([id number]) PHQ-9 - 38264 - PHQ-9 Billing: Yes ([id number]) Assessment & Plan Assessment & Plan (1) Encounter to establish care: Code(s): Z76.89 - Persons encountering health services in other specified circumstances (2) Obesity, morbid, BMI 40.0-49.9: Code(s): E66.01 - Morbid (severe) obesity due to excess calories Category: Medical (3) ADHD: Code(s): F90.9 - Attention-deficit hyperactivity disorder, unspecified type Category: Medical Qualifiers: Attention deficit-hyperactivity disorder type: predominantly inattentive Qualified Code(s): F90.0 - Attention-deficit hyperactivity disorder, predominantly inattentive type (4) B12 deficiency: Code(s): E53.8 - Deficiency of other specified B group vitamins Category: Medical (5) Bipolar 1 disorder: Code(s): F31.9 - Bipolar disorder, unspecified Category: Medical (6) History of gestational diabetes: Code(s): Z86.32 - Personal history of gestational diabetes Category: Medical (7) History of mammogram: Onset Date: ~02/2024 Code(s): Z92.89 - Personal history of other medical treatment Category: Medical (8) History of Papanicolaou smear of cervix: Onset Date: ~2021 Code(s): Z92.89 - Personal history of other medical treatment Category: Medical (9) HLD (hyperlipidemia): Code(s): E78.5 - Hyperlipidemia, unspecified Category: Medical Qualifiers: Hyperlipidemia type: mixed hyperlipidemia Qualified Code(s): E78.2 - Mixed hyperlipidemia (10) Hypothyroid: Code(s): E03.9 - Hypothyroidism, unspecified Category: Medical Qualifiers: Hypothyroidism type: acquired Qualified Code(s): E03.9 - Hypothyroidism, unspecified (11) Hypersomnia: Code(s): G47.10 - Hypersomnia, unspecified Category: Medical (12) Snoring: Code(s): R06.83 - Snoring Category: Medical (13) Herbst use: Code(s): Z79.899 - Other care home (current) drug therapy Category: Medical (14) Need for Tdap vaccination: Code(s): Z23 - Encounter for immunization Category: Medical (15) Vitamin D deficiency: Code(s): E55.9 - Vitamin D deficiency, unspecified Category: Medical (16) Encounter for general adult medical examination with abnormal findings: Onset Date: ~11/2024 Code(s): Z00.01 - Encounter for general adult medical examination with abnormal findings Category: Medical Plan . Orders: Orders RT home sleep study Today E66.01 - Morbid (severe) obesity due to excess calories, G47.10 - Hypersomnia, unspecified, R06.83 - Snoring Ferritin Today E03.9 - Hypothyroidism, unspecified, E53.8 - Deficiency of other specified B group vitamins, E78.5 - Hyperlipidemia, unspecified, F31.9 - Bipolar disorder, unspecified, Z79.899 - Other exterminator helper (current) drug therapy Hemoglobin A1c Today E03.9 - Hypothyroidism, unspecified, E53.8 - Deficiency of other specified B group vitamins, E78.5 - Hyperlipidemia, unspecified, F31.9 - Bipolar disorder, unspecified, Z79.899 - Other care home (current) drug therapy Lipid Panel Today E03.9 - Hypothyroidism, unspecified, E53.8 - Deficiency of other specified B group vitamins, E78.5 - Hyperlipidemia, unspecified, F31.9 - Bipolar disorder, unspecified, Z79.899 - Other care home (current) drug therapy Vitamin B12 and Folate Today E03.9 - Hypothyroidism, unspecified, E53.8 - Deficiency of other specified B group vitamins, E78.5 - Hyperlipidemia, unspecified, F31.9 - Bipolar disorder, unspecified, Z79.899 - Other care home (current) drug therapy Vitamin D 25-OH Total Today E03.9 - Hypothyroidism, unspecified, E53.8 - Deficiency of other specified B group vitamins, E78.5 - Hyperlipidemia, unspecified, F31.9 - Bipolar disorder, unspecified, Z79.899 - Other exterminator helper (current) drug therapy TDaP Immunization Today Z23 - Encounter for immunization Lipid Panel 6 Months E03.9 - Hypothyroidism, unspecified, E78.5 - Hyperlipidemia, unspecified Complete Blood Count no Diff Today E03.9 - Hypothyroidism, unspecified, E53.8 - Deficiency of other specified B group vitamins, E78.5 - Hyperlipidemia, unspecified, F31.9 - Bipolar disorder, unspecified, Z79.899 - Other care home (current) drug therapy Comprehensive Met. Panel Today E03.9 - Hypothyroidism, unspecified, E53.8 - Deficiency of other specified B group vitamins, E78.5 - Hyperlipidemia, unspecified, F31.9 - Bipolar disorder, unspecified, Z79.899 - Other care home (current) drug therapy IRON PROFILE Today E03.9 - Hypothyroidism, unspecified, E53.8 - Deficiency of other specified B group vitamins, E78.5 - Hyperlipidemia, unspecified, F31.9 - Bipolar disorder, unspecified, Z79.899 - Other care home (current) drug therapy Microalbumin, Random (w Creat) Today E03.9 - Hypothyroidism, unspecified, E53.8 - Deficiency of other specified B group vitamins, E78.5 - Hyperlipidemia, unspecified, F31.9 - Bipolar disorder, unspecified, Z79.899 - Other care home (current) drug therapy TSH reflex Free T4 Today E03.9 - Hypothyroidism, unspecified, E53.8 - Deficiency of other specified B group vitamins, E78.5 - Hyperlipidemia, unspecified, F31.9 - Bipolar disorder, unspecified, Z79.899 - Other exterminator helper (current) drug therapy Herbst Today E03.9 - Hypothyroidism, unspecified, E53.8 - Deficiency of other specified B group vitamins, E78.5 - Hyperlipidemia, unspecified, F31.9 - Bipolar disorder, unspecified, Z79.899 - Other exterminator helper (current) drug therapy TSH reflex Free T4 6 Months E03.9 - Hypothyroidism, unspecified, E78.5 - Hyperlipidemia, unspecified TSH reflex Free T4 6 Weeks E03.9 - Hypothyroidism, unspecified Referrals Cologuard Test Z12.11 - Encounter for screening for malignant neoplasm of colon, Z12.12 - Encounter for screening for malignant neoplasm of rectum Medications: New multivitamin with iron 1 tab PO DAILY 90 tabs 2RF cholecalciferol (vitamin D3) 50 mcg PO DAILY 90 caps 2RF levothyroxine 175 mcg PO DAILY 30 tabs 1RF atorvastatin 20 mg PO DAILY 90 tabs 2RF Discontinued levothyroxine Discontinued Reason: Doctor's Order 150 mcg PO DAILY 90 tabs 1RF Patient Instructions: Walk-In Care (Urgent Care): We Make it Easy Walk-in for urgent medical issues such as: ? Seasonal Allergies ? Insect Bites ? Cough ? Diarrhea ? Acute Asthma Attacks ? Back, Knee or Joint Pain ? Ear Infection ? Fever without a Rash ? Headaches ? Nausea ? [place] Eye, Rash or Skin Irritation ? Sore Throat ? Sports Physicals ? Vomiting Most insurances are accepted. Patients do not need to be part of the [facility] to seek care at the walk-in clinic. Locations [address] [place] [address] , [place] [address] ? [phone] [facility]-In Care in [place] provides services to ages 18 and over. Open Tuesday-Tuesday: 8 a.m. to 5 p.m. and Tuesday: 9 a.m. to 3 p.m.* *Hours may vary due to staffing availability. To confirm Walk-In Care hours in [place], please call [phone]. [address] [place] [address] ? [phone] [facility] Walk-In Care in [place] provides services to ages 12 and over. Open Tuesday-Tuesday: 8 a.m. to 5 p.m. Hours may vary due to staffing availability. To confirm Walk-In Care hours in [place], please call [phone]. LABORATORY SERVICES: [facility] Lab ? Primary Location [address] [place] [address] Tuesday through Tuesday 6:00 AM ? 5:00 PM Tuesday 7:00 AM ? 11:00 AM* [phone] The [facility] Lab is centrally located near the front entrance of the [facility] for easy outpatient access. Convenient parking is provided for outpatients. *Hours may vary due to staffing availability. To confirm Laboratory hours for any location, please call [phone]. Offsite Location For your convenience, we offer offsite laboratory draw stations at the following locations: [address] [facility] [place] ? [address], [address], [place] Tuesday through Tuesday 7:30 AM ? 1:00 PM* [phone] *Hours may vary due to staffing availability. To confirm Laboratory hours for any location, please call [phone]. [place] ? [address] [facility] Tuesday through Tuesday 6:00 AM ? 3:30 PM* Tuesday 6:30 AM ? 3 PM* [phone] *Hours may vary due to staffing availability. To confirm Laboratory hours for any location, please call [phone]. [address] [facility] Tuesday through Tuesday 7:30 AM ? 4:00 PM* [phone] *Hours may vary due to staffing availability. To confirm Laboratory hours for any location, please call [phone] [place] [address] Tuesday through 9:00 AM ? 4:00 PM* *Hours may vary due to staffing availability. To confirm Laboratory hours for any location, please call [phone]. Appointments are not necessary. Walk-ins are welcome. Like all the departments throughout the [facility], our Lab undergoes frequent reviews to ensure the quality and accuracy of test results, and our staff takes special pride in its status as a nationally accredited facility. Patient Portal: ONE PATIENT. ONE RECORD. BETTER CARE. [facility] has a fully integrated, cutting-edge mobile electronic health information system that has revolutionized the way we care for our patients and manage our organization. This system improves communication and coordination enabling us to provide safe, higher-quality care, and an overall positive experience for staff and patients. Our first priority, as always, is to deliver the highest quality care possible. The system is running in the background supporting that priority. This portal is for all [facility] services and practices. If you are experiencing any technical difficulties with enrolling or logging into the Patient Portal please complete the [facility] Patient Portal Technical Support Form. [facility] now offers a new secure on-line interactive tool for patients to review their health information ? ?Patient Portal. This interactive web portal will enable patients and their families to take an active role in their care by providing easy, secure access to their health information via the internet. The Patient Portal provides patients with instant access to their health information, including laboratory results, medications, allergies, demographic information, visit history, and more. In addition to managing their own care, parents and health care proxies with authorized consent will appreciate the ability to access the records of those individuals for whom they provide care. Please note: if you wish to gain access (Proxy) to another patient?s portal, you will be required to come to the Medical Records Department in person at [facility]. Both the patient giving proxy access and the proxy will need to provide photo identification and complete the appropriate authorization. The Patient Portal also allows track their appointments online. The [facility] Patient Portal also saves patients time by allowing them to submit updates to their demographic and contact information prior to their visits. Portal email notifications will also alert patients to any new activity on their portal, such as test results and new appointments. In order to initially enroll in the [facility] Patient Portal, you will need to enter some required information including the following: your [facility] Medical Record number your personal home email address name date of Please note: In order to enroll in the [facility] Patient Portal, we need to have your email address on file in your electronic medical record. ?The email address needs to be specific for one person (yourself) in order for your Portal enrollment to be successful. ?You can update your email address in person with our Registration staff when you are registering for a hospital visit. ?Otherwise, you will need to come to the Health Information Management (Medical Records) Department at [facility]. ?We are open from Tuesday ? Tuesday from 7:30 a.m. ? 4:30 p.m. ?You will be required to present a photo id. Once you have successfully enrolled in the Patient Portal, you will receive a one-time user id and password for the Portal, sent to your email address. ?This will allow you to log into the Patient Portal within 99 hrs and reset your own logon id and password, and define personal security questions. ?Once your permanent login and password have been set, you can log into the [facility] Patient Portal at any time via the blue button above or from the Portal Logon button on any page of the [facility] website. [facility] encourage all of our patients to enroll in Patient Portal as it presents a valuable opportunity for patients and their families to actively participate in their care and stay healthy Welcome to [facility]. ?We look forward to working with you.
--- OUTSIDE RECORDS SUMMARY | 2024-12-06 08:27 | XMS_ITS | Data Portability ---
Author Organization [facility], [facility] Address [address] [place] [address] Assessment No assessment recorded. Plan of Treatment Reminders Order Date Submit Date Provider Last Modified By Organization Details Last Modified Time Details Appointments None record ed. Lab None record ed. Referral None record ed. Procedures None record ed. Surgeries None record ed. Imaging None record ed. Medication Orders None record ed. Patient TargetsNo targets recorded. Patient InstructionsNo instructions recorded. Reason for Referral None Reported. Problems Name Problem SNOMED Code Status Onset Date Resolution Date Notes Provider Name and Address Organization Details Recorded Time Headache 60950316 Active 2002 Not Available [facility] 3 03:10:47 Mixed hyperlipid emia 418878109 Active 2000 Not Available [facility] 3 03:10:47 Injury of finger 37968874 Completed 200105/30/2013 Not Available [facility] 3 02:03:42 Increased frequency of urination 136486588 Completed 200605/30/2013 Not Available [facility] 3 02:02:51 Pruritic disorder 710326625 Active 2001 Not Available [facility] 3 03:10:47 Open wound of hand, excluding finger(s) 398081851 Completed 200005/30/2013 Not Available [facility] 3 02:03:52 Acute pharyngiti s 355926428 Completed 200205/30/2013 Not Available [facility] 3 02:01:16 Low compliance urinary bladder 0474871 Active 2006 Not Available [facility] 3 03:10:47 Major depression , melancholi c type 070474537 Active 2004 Not Available [facility] 3 03:10:47 Obesity 217077916 Active 2003 Not Available [facility] 3 03:10:47 Acute swimmer's ear Completed 200105/30/2013 Not Available [facility] 3 02:03:32 Common cold 40797773 Completed 200105/30/2013 Not Available [facility] 3 02:00:27 Knee pain Completed 200505/30/2013 Not Available [facility] 3 02:00:41 Panic disorder without agoraphobi a 83580756 Active 2001 Not Available [facility] 3 03:10:47 Verruca vulgaris 60663756 Completed 200405/30/2013 Not Available [facility] 3 02:02:13 Malignant melanoma of skin of lip 77554774 Active 2006 Not Available [facility] 3 03:10:47 Acute maxillary sinusitis 95717359 Completed 200105/30/2013 Not Available [facility] 3 02:01:42 Abnormal weight gain 789306925 Active 2004 Not Available [facility] 3 03:10:47 Muscle, ligament and fascia disorders 368785446 Active 2005 Not Available [facility] 3 03:10:47 Pain in limb 66288832 Completed 200105/30/2013 Not Available [facility] 3 02:00:55 Malaise and fatigue 406657849 Completed 200005/30/2013 Not Available [facility] 3 02:00:17 Problem Notes None recorded. Medical Equipment None Reported. Vitals None Recorded Social History None recorded. Functional Status None recorded. Mental Status None recorded. Family History Nothing Reported. Medical History No medical history recorded. Gynecological HistoryNo gynecological history recorded. Obstetrics History GPAL:G 0 P 0 0 0 0 Immunizations Vaccine Type Date Status Note Provider Nam e and Address Organization Details Recorded Time Td(adult) unspecified formulation 1 completed Not Available [facility] 05/26/2011 05:20:34 Past Encounters Encounter ID Performer Location Encounter Start Date Encounter Closed Date Diagnosis/Indication Diagnosis SNOMED-CT Code Diagnosis ICD10 Code Diagnosis Note [id number] Adán Guidry MD , [facility], OFFICE [address] [place] [address] 08/11/2000 11:30:00 07/31/2008 02:02:29 [id number] Adán Guidry MD , [facility], OFFICE [address] [place] [address] 10/06/2000 10:45:00 07/31/2008 02:02:29 [id number] Adán Guidry MD , [facility], OFFICE [address] [place] [address] 04/14/2001 15:15:00 07/31/2008 02:02:29 [id number] Adán Guidry MD , [facility], OFFICE [address] [place] [address] 08/09/2001 11:45:00 07/31/2008 02:02:29 [id number] Adán Guidry MD , [facility], OFFICE [address] [place] [address] 08/21/2001 13:45:00 07/31/2008 02:02:29 [id number] Jonas Fitzgerald MD , [facility], OFFICE [address] [place] [address] 10/06/2001 16:00:00 07/31/2008 02:02:29 [id number] Adán Guidry MD , [facility], OFFICE [address] [place] [address] 11/20/2001 15:00:00 07/31/2008 02:02:29 [id number] [facility] RADIOLOGY Technologi Radiology , [facility] [address] [place] [address] 12/14/2001 08:48:44 07/31/2008 02:02:29 [id number] Airam Baca , [facility], OFFICE [address] [place] [address] 04/13/2002 09:51:18 07/31/2008 02:02:29 [id number] MD XI Medeiros, [facility], OFFICE [address] [place] [address] 06/12/2002 12:38:32 07/31/2008 02:02:29 [id number] Woo Martinez III, MD , [facility], OFFICE [address] [place] [address] 06/14/2002 08:52:00 07/31/2008 02:02:29 [id number] [facility] LAB LAB - [facility] [address] [place] [address] 10/25/2002 09:41:19 07/31/2008 02:02:29 [id number] Paula LAYNE, [facility], OFFICE [address] [place] [address] 10/25/2002 08:54:33 07/31/2008 02:02:29 [id number] MARCI Blanc, [facility], OFFICE [address] [place] [address] 03/05/2003 14:46:55 07/31/2008 02:02:29 [id number] Paula LAYNE, [facility], OFFICE [address] [place] [address] 03/04/2004 10:26:15 03/05/2004 08:36:15 [id number] Paula LAYNE, [facility], OFFICE [address] [place] [address] 08/14/2004 09:09:20 08/17/2004 09:04:28 [id number] Paula LAYNE, [facility], OFFICE [address] [place] [address] 1 09/22/2004 11:05:15 09/23/2004 08:55:16 [id number] Paula LAYNE, [facility], OFFICE [address] [place] [address] 02/16/2005 08:01:30 02/16/2005 15:57:03 [id number] [facility] LAB LAB - [facility] [address] [place]grid [place] [id number] 02/16/2005 08:58:01 02/16/2005 08:58:26 [id number] Paula LAYNE [facility], OFFICE [address] [place] [address] 09/15/2005 10:12:00 09/15/2005 11:25:19 [id number] Paula LAYNE, [facility], OFFICE [address] [place] [address] 09/20/2005 10:11:36 09/20/2005 17:25:02 [id number] [facility] LAB LAB - [facility] [address] [place] [address] 09/20/2005 10:57:26 09/20/2005 10:57:47 [id number] Paula LAYNE, [facility], OFFICE [address] [place] [address] 12/07/2005 09:24:15 12/07/2005 15:02:24 [id number] Blessing Eaton, PT Physical Therapy, [address] [place] [address] 12/13/2005 08:54:32 12/13/2005 10:34:34 [id number] Blessing Eaton, PT Physical Therapy, [facility] [place] [address] 12/21/2005 09:39:14 12/21/2005 10:43:40 [id number] Blessing Eaton PT Physical Therapy, [address] [place] [address] 12/30/2005 10:07:29 12/30/2005 10:22:22 [id number] Blessing Eaton PT Physical Therapy, [address] [place] [address] 01/06/2006 09:40:46 01/06/2006 10:33:35 [id number] Blessing Eaton PT Physical Therapy, [address] [place] [address] 01/19/2006 09:32:26 01/19/2006 12:32:03 [id number] [facility] LAB LAB - [facility] [place] [address] 04/06/2006 07:25:31 04/06/2006 07:25:36 [id number] Paula LAYNE, [facility], OFFICE [address] [place] [id number] 1 04/05/2006 10:34:53 05/09/2006 08:10:50 [id number] Paula LAYNE, [facility], OFFICE [address] [place] [address] 1 08/26/2006 09:16:03 08/26/2006 13:17:19 [id number] Paula LAYNE, [facility], OFFICE [address] [place] [address] 09/08/2006 14:05:58 09/08/2006 15:56:21 [id number] [facility] ULTRASOUND Technologi st Radiology , [address] [place] [address] 09/15/2006 08:46:46 09/15/2006 16:08:33 [id number] [facility] ULTRASOUND Technologi [facility] , [facility] [address] [facility] [place] [address] 09/15/2006 00:00:00 07/31/2008 02:02:29 [id number] Paula SANTOS , [facility], OFFICE [address] [facility] [place] [address] 09/30/2006 10:33:53 09/30/2006 11:43:58 Health Concerns Section Related Observation LastModified by Organization Detai ls LastModified Time None Recorded Concern Status LastModified by Organization Details LastModified Time None Recorded Advance Directives Directive None Recorded Payers Encounter Date Sequence Insurance Name Policy Number Policy Tavarez Covered Member ID Tavarez Member ID Guarantor Name 08/26/2006 1 [employer] [employer] [place]) [id number] Irene Tita [id number] Irene Tita 09/08/2006 1 [employer] [employer] [place] [id number] Irene Tita [id number] Irene Tita 09/15/2006 1 [employer] [employer] [place]) [id number] Irene Tita [id number] Irene Tita 09/30/2006 1 [employer] [employer] [place] [id number] Irene Tita [id number] Irene Tita OBGyn Episode No OBEpisode recorded.
[2024-12-06 08:29] VITALS: BP 118/68; PULSE 68; RESP 12; TEMP 36.2; O2SAT 99; BMI 40.8
== END 2024-12-06 09:29 | disposition home or self-care (01) ==
LOC: HO.HMCFM 08:19
PROVIDERS: PCP Nurse Practitioner Family; Visit Provider Nurse Practitioner Family
DX: Z00.00 Encounter for general adult medical examination without abnormal findings (principal); F31.9 Bipolar disorder, unspecified; E66.01 Morbid (severe) obesity due to excess calories; Z68.41 Body mass index [BMI] 40.0-44.9, adult; E78.2 Mixed hyperlipidemia; F90.0 Attention-deficit hyperactivity disorder, predominantly inattentive type; E53.8 Deficiency of other specified B group vitamins; Z86.32 Personal history of gestational diabetes; E03.9 Hypothyroidism, unspecified; G47.10 Hypersomnia, unspecified; R06.83 Snoring; Z23 Encounter for immunization

== ENCOUNTER → 2024-12-06 08:19 | Outpatient (BNVA) | payer OTHER, SELFPAY | PROVIDERS: PCP Nurse Practitioner Family; Visit Provider Nurse Practitioner Family | DX: Z00.01 Encounter for general adult medical examination with abnormal findings (principal); Z76.89 Persons encountering health services in other specified circumstances; Z23 Encounter for immunization; E66.01 Morbid (severe) obesity due to excess calories; Z68.41 Body mass index [BMI] 40.0-44.9, adult; F90.0 Attention-deficit hyperactivity disorder, predominantly inattentive type; E53.8 Deficiency of other specified B group vitamins; F31.9 Bipolar disorder, unspecified; E78.2 Mixed hyperlipidemia; E03.9 Hypothyroidism, unspecified; G47.10 Hypersomnia, unspecified; R06.83 Snoring; E55.9 Vitamin D deficiency, unspecified; Z79.899 Other long term (current) drug therapy; Z86.32 Personal history of gestational diabetes; Z92.89 Personal history of other medical treatment | CPT/HCPCS: 90471; 90715; 96127 ==

== ENCOUNTER 2024-12-06 09:34 | Outpatient (REF) | payer OTHER, SELFPAY ==
[2024-12-06 12:10] LABS: Hematocrit 38.6 % (37.0-47.0); Hemoglobin 12.1 g/dl (12.0-16.0); Mean Corpuscular HGB Conc 31.3 g/dl (31.0-35.0); Mean Corpuscular Hemoglobin 26.7 pg (27.0-33.0); Mean Platelet Volume 12.1 fL (9.4-12.3); Platelet Count 232 X10*3/uL (160-400); Red Blood Count 4.54 X10*6/uL (4.20-5.50); Red Cell Distribution Width 15.7 % (11.0-16.0)
[2024-12-06 12:28] LABS: Estimated Average Glucose 111 mg/dL; Hemoglobin A1c % 5.5 % (<6.0)
[2024-12-06 12:50] LABS: Alanine Aminotransferase 14 U/L (0-31); Albumin Level 4.3 g/dL (3.5-5.0); Alkaline Phosphatase 88 U/L (39-117); Anion Gap 13 (12-20); Aspartate Amino Transferase 18 U/L (5-31); Bilirubin Total 0.6 mg/dL (0.0-1.0); Blood Urea Nitrogen 20 mg/dL (9-16); Calcium 9.6 mg/dL (8.4-10.2); Carbon Dioxide 24 mmol/L (22-29); Chloride 108 mmol/L (96-108); Cholesterol 223 mg/dL (<200); Estimated Glomerular Filt Rate > 60; Glucose Random 108 mg/dL (60-115); HDL Cholesterol 82 mg/dL (>40); Iron 67 mcg/dL (30-160); LDL Cholesterol Calculated 112 mg/dL (<100); Percent Iron Saturation 12 % (15-50); Potassium 4.3 mmol/L (3.3-5.1); Sodium 141 mmol/L (135-145); Total Iron Binding Capacity 539 mcg/dL (228-428); Total Protein 7.6 g/dL (6.5-8.0); Triglycerides 145 mg/dL (<150); Unsaturated Iron Binding 472 ug/dL
[2024-12-06 12:59] LABS: Lithium 0.31 mmol/L (0.60-1.20)
[2024-12-06 13:01] LABS: Creatinine Urine 134.39 mg/dL; Microalbum/Creatinine Ratio Ur 7.4 ug/mg cr (<30)
[2024-12-06 13:07] LABS: Ferritin 11 ng/mL (10-250); TSH reflex Free T4 4.04 uIU/mL (0.32-4.0); Vitamin D 25-OH Total 14.4 ng/mL (>30)
[2024-12-06 13:18] LABS: Vitamin B12 311 pg/mL (200-900)
[2024-12-06 13:41] LABS: Free T4 (Free Thyroxine) 0.86 ng/dL (0.71-1.85)
== END 2024-12-06 09:35 | disposition home or self-care (01) ==
LOC: HO.WFDLDS 09:34
PROVIDERS: Visit Provider Nurse Practitioner Family
DX: E53.8 Deficiency of other specified B group vitamins (principal); F31.9 Bipolar disorder, unspecified; Z79.899 Other long term (current) drug therapy; E78.5 Hyperlipidemia, unspecified; E03.9 Hypothyroidism, unspecified
CPT/HCPCS: 36415; 80053; 80061; 80178; 82043; 82306; 82570; 82607; 82728; 82746; 83036; 83540; 84439; 84443; 85027

== ENCOUNTER 2025-02-01 14:46 | Outpatient (REF) | payer OTHER, SELFPAY ==
--- OUTSIDE RECORDS SUMMARY | 2025-02-01 14:49 | XMS_ITS | Data Portability ---
Author Organization [facility], [facility] Address [address] [place] [address] Assessment No assessment recorded. Plan of Treatment [...] Name and Address Organization Details Recorded Time Mixed hyperlipid emia 076640132 Active 2000 Not Available [facility] 3 03:10:47 Open wound of hand, excluding finger(s) 995389024 Completed 200005/30/2013 Not Available [facility] 3 02:03:52 Malaise and fatigue 598568485 Completed 200005/30/2013 Not Available [facility] 3 02:00:17 Acute maxillary sinusitis 43619511 Completed 200105/30/2013 Not Available [facility] 3 02:01:42 Pruritic disorder 634696697 Active 2001 Not Available [facility] 3 03:10:47 Acute swimmer's ear Completed 200105/30/2013 Not Available [facility] 3 02:03:32 Pain in limb 87571299 Completed 200105/30/2013 Not Available [facility] 3 02:00:55 Injury of finger 19189177 Completed 200105/30/2013 Not Available [facility] 3 02:03:42 Panic disorder without agoraphobi a 63865855 Active 2001 Not Available [facility] 3 03:10:47 Common cold 30531202 Completed 200105/30/2013 Not Available [facility] 3 02:00:27 Acute pharyngiti s 754511927 Completed 200205/30/2013 Not Available [facility] 3 02:01:16 Headache 07603355 Active 2002 Not Available [facility] 3 03:10:47 Obesity 875044653 Active 2003 Not Available [facility] 3 03:10:47 Verruca vulgaris 60404592 Completed 200405/30/2013 Not Available [facility] 3 02:02:13 Major depression , melancholi c type 301196335 Active 2004 Not Available [facility] 3 03:10:47 Abnormal weight gain 809834347 Active 2004 Not Available [facility] 3 03:10:47 Knee pain Completed 200505/30/2013 Not Available [facility] 3 02:00:41 Muscle, ligament and fascia disorders 057182799 Active 2005 Not Available [facility] 3 03:10:47 Malignant melanoma of skin of lip 77610957 Active 2006 Not Available [facility] 3 03:10:47 Increased frequency of urination 947027277 Completed 200605/30/2013 Not Available [facility] 3 02:02:51 Low compliance urinary bladder 3318702 Active 2006 Not Available [facility] 3 03:10:47 Problem Notes None recorded. Medical Equipment None [...] Td(adult) unspecified formulation 1 completed Not Available [facility] 05/26/2011 05:20:34 Past Encounters Encounter ID Performer Location Encounter Start Date Encounter Closed Date Diagnosis/Indication Diagnosis SNOMED-CT Code Diagnosis ICD10 Code Diagnosis Note [id number] Adán Guidry MD , [facility] [address] [place] [address] 08/11/2000 11:30:00 07/31/2008 02:02:29 [id number] Adán Guidry MD , [facility] [address] [place] [address] 10/06/2000 10:45:00 07/31/2008 02:02:29 [id number] Adán Guidry MD , [facility] [address] [place] [address] 04/14/2001 15:15:00 07/31/2008 02:02:29 [id number] Adán Guidry MD , [facility] [address] [place] [address] 08/09/2001 11:45:00 07/31/2008 02:02:29 [id number] Adán Guidry MD , [facility] [address] [place] [address] 08/21/2001 13:45:00 07/31/2008 02:02:29 [id number] Jonas Fitzgerald MD , [facility] [address] [place] [address] 10/06/2001 16:00:00 07/31/2008 02:02:29 [id number] Adán Guidry MD , [facility] [address] [place] [address] 11/20/2001 15:00:00 07/31/2008 02:02:29 [id number] [facility] , [facility] [address] [place] [address] 12/14/2001 08:48:44 07/31/2008 02:02:29 [id number] Airam Baca , [facility] [address] [place] [address] 04/13/2002 09:51:18 07/31/2008 02:02:29 [id number] MD XI Medeiros, [facility] [address] [place] [address] 06/12/2002 12:38:32 07/31/2008 02:02:29 [id number] MD XI Day III, [facility] [address] [place] [address] 06/14/2002 08:52:00 07/31/2008 02:02:29 [id number] [facility] - [facility] [address] [place] [address] 10/25/2002 09:41:19 07/31/2008 02:02:29 [id number] Paula LAYNE, [facility] [address] [place] [address] 10/25/2002 08:54:33 07/31/2008 02:02:29 [id number] MARCI Blanc, [facility] [address] [place] [address] 03/05/2003 14:46:55 07/31/2008 02:02:29 [id number] Paula LAYNE, [facility] [address] [place] [address] 03/04/2004 10:26:15 03/05/2004 08:36:15 [id number] Paula LAYNE, [facility] [address] [place] [address] 08/14/2004 09:09:20 08/17/2004 09:04:28 [id number] Paula LAYNE, [facility] [address] [place] [address] 09/22/2004 11:05:15 09/23/2004 08:55:16 [id number] Paula LAYNE, [facility] [address] [place] [address] 02/16/2005 08:01:30 02/16/2005 15:57:03 [id number] [facility] - [facility] [address] [place] [id number] 02/16/2005 08:58:01 02/16/2005 08:58:26 [id number] Paula LAYNE [facility] [address] [place] [address] 09/15/2005 10:12:00 09/15/2005 11:25:19 [id number] Paula LAYNE [facility] [address] [place] [address] 09/20/2005 10:11:36 09/20/2005 17:25:02 [id number] [facility] - [facility] [address] [place] [address] 09/20/2005 10:57:26 09/20/2005 10:57:47 [id number] Paula LAYNE, [facility] [address] [place] [address] 12/07/2005 09:24:15 12/07/2005 15:02:24 [id number] Blessing Eaton, PT Physical Therapy, [facility] [place] [address] 1 12/13/2005 08:54:32 12/13/2005 10:34:34 [id number] Blessing Eaton PT Physical Therapy, [facility] [place] [address] 12/21/2005 09:39:14 12/21/2005 10:43:40 [id number] Blessing Eaton, PT Physical Therapy, [facility] [place] [address] 12/30/2005 10:07:29 12/30/2005 10:22:22 [id number] Blessing Eaton, PT Physical Therapy, [facility] [place] [address] 01/06/2006 09:40:46 01/06/2006 10:33:35 [id number] Blessing Eaton, PT Physical Therapy, [facility] [place] [address] 01/19/2006 09:32:26 01/19/2006 12:32:03 [id number] [facility] - [facility] [place] [address] 04/06/2006 07:25:31 04/06/2006 07:25:36 [id number] Paula LAYNE, [facility] [address] [place] [address] 04/05/2006 10:34:53 05/09/2006 08:10:50 [id number] Paula LAYNE, [facility] [address] [place] [address] 08/26/2006 09:16:03 08/26/2006 13:17:19 [id number] Paula LAYNE, [facility] [address] [place] [address] 09/08/2006 14:05:58 09/08/2006 15:56:21 [id number] [facility] Radiology , [facility] [address] [place] [address] 09/15/2006 08:46:46 09/15/2006 16:08:33 [id number] [facility]i Radiology , [address] [place] [address] 09/15/2006 00:00:00 07/31/2008 02:02:29 [id number] Paula SANTOS , [facility] [address] [facility] [place] [address] 09/30/2006 10:33:53 09/30/2006 11:43:58 Health Concerns Section Related Observation LastModified by Organization Detai ls LastModified Time None Recorded Concern Status LastModified by Organization Details LastModified Time None Recorded Advance Directives Directive None Recorded Payers Insurance Date Sequence Insurance Name Policy Number Policy Tavarez Covered Member ID Tavarez Member ID Guarantor Name 08/10/2007 1 [employer] [employer] [facility] [id number] Ireneyahaira Rivers [id number] Irene Tita 08/10/2007 1 [employer] [place]: [place] [employer] ([facility]) [id number] Ireneyahaira Ahnt [id number] Irene Tita 08/10/2007 1 [employer] [id number] Ireneyahaira Ahnt [id number] Ireneyahaira Rivers OBGyn Episode No OBEpisode recorded.
== END 2025-02-01 14:47 | disposition home or self-care (01) ==
LOC: HO.LAB 14:46
PROVIDERS: PCP Nurse Practitioner Family; Visit Provider Nurse Practitioner Family
DX: E03.9 Hypothyroidism, unspecified (principal); N89.8 Other specified noninflammatory disorders of vagina
CPT/HCPCS: 36415; 84443

== ENCOUNTER 2025-02-20 07:46 | Outpatient (AMB) | payer OTHER, SELFPAY ==
--- NOTE | 2025-02-19 11:29 | MHC.OFFVIS ---
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 Stopped OCP's this month. Currently not sexually active. STI testing offered; she declines. Attempting to eat a healthy diet with calcium and vitamin D and stays active with exercise. Last pap smear; 2021, negative. Last mammogram; 2023. ColoGard is up to date. MGGM-breast cancer. [facility] Medical History Anxiety Breast lump on right side at 5 o'clock position Lateral epicondylitis, left elbow Patella-femoral syndrome ADHD Anemia History of depression Hypothyroid Surgical History History of colonoscopy (~2021) S/P anal fissurectomy Hx of section Family History Family/Other Breast cancer Father Substance abuse Brother Substance abuse Social History Household Members: Spouse and Family Household Members Other:: , and twins Both parents involved: No Caregiver staying overnight: No Housing: House Are you a primary manager long term care to a significant other at home: No Do you presently have visiting nurse or other home services: No 75 years or older and lives alone: No Alcohol intake: current Alcohol intake frequency: a few times a month Patient Tobacco Use Status: Never used Tobacco e-Cigarette/Vaping Use: Never Used Second Hand Smoke Exposure: No Current occupational status: employed Current occupation: [employer] Sexual orientation: Straight/Heterosexual Gender identity: Female Cognitive needs: No Hearing needs: No Vision needs: Yes (wear glasses) Female Reproductive History Menstrual Age of Menarche: 9 Total pregnancies: 1 Full term: 2 Multiple births: 1 Date of last pap smear: 12/30/21 (negative pap smear, negative hpv) Date of Mammogram: 03/07/24 (bi rad 1) Review of Systems Const All systems reviewed & are unremarkable except as noted in HPI and below Reports as per HPI Eyes Reports no additional complaints ENT Reports no additional complaints Card Reports no additional complaints Resp Reports no additional complaints GI Reports as per HPI and Reports no additional complaints Reports as per HPI Musc Reports no additional complaints Skin/Breast Reports as per HPI Neuro Reports no additional complaints Psych Reports no additional complaints Endo Reports no additional complaints Db/Lymph Reports no additional complaints Aller/Immun Reports no additional complaints Physical Exam Vital Signs: Last Vital Signs BP 118/70 02/20/25 08:05 BMI result Body Mass Index 41.6 Const General: cooperative, healthy appearing, no acute distress, well developed and alert Orientation/consciousness: patient oriented x3 HEENT Head: Yes normal to inspection Eyes General: appearance normal, both eyes and all related structures Neck Neck: Yes normal visual inspection Thyroid: Thyroid normal Chest Chest palpation & inspection: normal inspection of the chest and other (no puckering, dimpling, peau de orange, retraction, discharge, masses) Breast/axilla inspection: normal inspection of the breasts Breast/axilla palpation: normal palpation of the breasts Resp Effort & Inspection: normal respiratory effort GI Inspection: Yes normal to inspection Palpation (GI): Soft to palpation Rectal Exam - Female: deferred General: Yes bladder normal to palpation External Female Exam: normal external appearance (peeling skin in creases) and erythema Speculum Exam - Vagina: normal appearance of the vagina, normal palpation and abnormal vaginal discharge (Copious green tinge) Speculum Exam - Cervix: normal appearance of the cervix and normal palpation Bimanual exam- vagina & uterus: normal bimanual exam, normal palpation, uterine size normal, bladder normal to palpation, normal palpation and non-tender Bimanual Exam- Adnexa, other: no masses Skin General skin exam: no rashes or lesions noted Rashes: no rashes Neuro General: patient oriented x3 Cognition (Neuro): normal cognition Extrem General: Yes normal to inspection Psych Attitude: cooperative Thought process: Normal thought process present Assessment & Plan Assessment & Plan (1) Encounter for well woman exam with routine gynecological exam: Code(s): Z01.419 - Encounter for gynecological examination (general) (routine) without abnormal findings Category: Medical Plan: Discussed: Current recommendations for pap smears per ASCCP guidelines. Breast awareness, periodic self breast exams and yearly mammogram. Maintain a healthy lifestyle, well balanced diet including Calcium 1,200 mg and Vitamin D 600 IU daily, and routine exercise. Mediterranean diet handout provided. Menopause verses perimenopause. Menopause is definitive of 1 year of no menses or 12 months in succession. Monitor menstrual cycles, report any unscheduled bleeding, bleeding episodes <24 days apart or heavy/prolonged menstrual bleeding. Call the office for a follow up for any concerns. Patient verbalizes understanding and agrees to the plan of care. She was given opportunity to ask questions and all questions were answered to the best of my ability. RTO in 1 year for annual elevator repairer exam. This note is constructed using voice recognition software. While every effort has been made to ensure accuracy, sulfur chloride operator errors may have been included. (2) Vulvar itching: Code(s): L29.2 - Pruritus vulvae Plan BV panel obtained, await results for final plan of care. Reviewed skin care. The patient expressed understanding and agreement with the plan of care. All of her questions and concerns were addressed to the best of my ability. Rx medication sent in, use reviewed. If unresolved or worsening symptoms to follow up in the office. Orders: Orders MM tomosynthesis screening BI Today Z12.31 - Encounter for screening mammogram for malignant neoplasm of breast Bacterial Vaginosis Panel Today Z01.419 - Encounter for gynecological examination (general) (routine) without abnormal findings Medications: New clotrimazole-betamethasone 1-0.05 % apply externally a thin coat to the area 1 appl topical BID 45 grams 0RF itching 7 days Coding Level of Care Code Est Pt Prev Care 40-64y(02622) Diagnoses Encounter for well woman exam with routine gynecological exam Z01.419 Vulvar itching L29.2
[2025-02-20 08:05] VITALS: BP 118/70; BMI 41.6
== END 2025-02-20 08:34 | disposition home or self-care (01) ==
LOC: HO.HWS 07:47
PROVIDERS: PCP Physician Assistant; Visit Provider Advanced Practice Midwife
DX: Z01.419 Encounter for gynecological examination (general) (routine) without abnormal findings (principal); L29.2 Pruritus vulvae
CPT/HCPCS: 99396; 99459

== ENCOUNTER 2025-02-20 07:46 | Outpatient (REF) | payer OTHER, SELFPAY ==
[2025-02-20 13:26] LABS: Bacterial Vaginosis PCR NEGATIVE (Negative); Candida Group PCR NOT DETECTED (Not Detect); Candida glab krusei PCR NOT DETECTED (Not Detect); Trichomonas vaginalis PCR NOT DETECTED (Not Detect)
== END 2025-02-20 07:47 | disposition home or self-care (01) ==
LOC: HO.LNP 07:46
PROVIDERS: PCP Physician Assistant; Visit Provider Advanced Practice Midwife
DX: Z01.419 Encounter for gynecological examination (general) (routine) without abnormal findings (principal); L29.2 Pruritus vulvae; Z12.31 Encounter for screening mammogram for malignant neoplasm of breast; Z79.899 Other long term (current) drug therapy
CPT/HCPCS: 81515

== ENCOUNTER 2025-03-29 12:58 | Outpatient (AMB) | payer OTHER, SELFPAY ==
--- NOTE | 2025-03-29 13:00 | MHC.PC.OV ---
Vital Signs 03/29/25 13:02 Height 5 ft 3 in Weight 238 lb 2 oz BMI 42.2 BP 116/82 Blood Pressure Location Lt brachial Position Sitting Pulse 94 Pulse Source Pulse Oximeter Pulse Oximetry (%) 96 Oxygen Delivery Method Room Air Intake Visit Reasons: FMLA Allergies No Known Allergies (No Known Allergies*) Allergy (Verified 03/29/25 13:31) Medication List - Last Reconciled 03/29/25 by Antonia Jones, MEDIA LAW FACULTY MEMBER- atorvastatin 20 mg PO DAILY cholecalciferol (vitamin D3) 50 mcg PO DAILY clotrimazole-betamethasone 1-0.05 % 1 appl topical BID 7 days lamotrigine 200 mg PO DAILY levothyroxine 175 mcg PO DAILY lithium carbonate ER 450 mg PO BEDTIME multivitamin with iron 1 tab PO DAILY sertraline 25 mg PO DAILY sertraline 200 mg PO DAILY Tobacco use date assessed: 03/29/25 Dental Screening Dental Screen Date: 03/29/25 Did you have a dental visit in the last 12 months?: Yes Did you have a dental problem in the last 6 months where you did not have access to dental care?: No Was dental information given to patient?: Patient has dentist HPI HPI Comments History of Present Illness Details 49 y/o F with HLD, hypothyroid, ADHD, Bipolar, anemia, hx of gestational DM, b12 def, lithium use, obesity s/p c section, anal fissure repair Fhx: Dad prostate Ca, etoh HLD, Mom HLD, Brother Etoh Mental hx on paternal side Social: getting a divorce, has Twins (Thomas and Kate), works at [employer] Health Maintenance Mammo 02/2024 Pap 2021 Cologaurd 2021, repeat 2024 cologuard ordered PAGE 6 Tdap 2024, 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 Has gained wt falling asleep at work All joints aches Looking for intermittent leave Exam Awake alert NAD Speaking in full sentences Mood and affect appropriate for setting Plan: Intermittent FMLA completed at time of visit; returned to her. 1 day per week, episode lasting 1 day per episode 03/29/25- 09/26/24 RTO as scheduled, sooner as needed. Total time spent caring for the patient today was 30 minutes. This includes time spent before the visit reviewing the chart, time spent during the visit, and time spent after the visit on documentation, reviewing laboratory results, diagnostic imaging, medications, performing a medically necessary evaluation, counseling on diagnoses, care coordination, ordering appropriate tests, ordering appropriate medications, review of tests performed by other providers, reporting test results with the patient, communication with other healthcare providers. [facility] Medical History Anxiety Breast lump on right side at 5 o'clock position Lateral epicondylitis, left elbow Patella-femoral syndrome ADHD Anemia History of depression Hypothyroid Surgical History History of colonoscopy (~2021) S/P anal fissurectomy Hx of section Family History Family/Other Breast cancer Father Substance abuse Brother Substance abuse Social History Household Members: Spouse and Family Household Members Other:: , and twins Both parents involved: No Caregiver staying overnight: No Housing: House Are you a primary care coordination manager to a significant other at home: No Do you presently have visiting nurse or other home services: No 75 years or older and lives alone: No Alcohol intake: current Alcohol intake frequency: a few times a month Patient Tobacco Use Status: Never used Tobacco e-Cigarette/Vaping Use: Never Used Second Hand Smoke Exposure: No Current occupational status: employed Current occupation: [employer] [place] Sexual orientation: Straight/Heterosexual Gender identity: Female Cognitive needs: No Hearing needs: No Vision needs: Yes (wear glasses) Female Reproductive History Menstrual Age of Menarche: 9 Questionnaire PHQ-9 Over the last 2 weeks, how often have you been bothered by any of the following problems? 1. Little interest or pleasure in doing things: several days 2. Feeling down, depressed, or hopeless: several days 3. Trouble falling or staying asleep, or sleeping too much: nearly every day 4. Feeling tired or having little energy: more than half the days 5. Poor appetite or overeating: more than half the days 6. Feeling bad about yourself - or that you are a failure or have let yourself or your family down: several days 7. Trouble concentrating on things, such as reading the newspaper or watching television: not at all 8. Moving or speaking so slowly that other people could have noticed. Or the opposite - being so fidgety or restless that you have been moving around a lot more than usual: not at all 9. Thoughts that you would be better off or of hurting yourself in some way: not at all Total score: 10 Source: Developed by Drs. Sinan Stevenson, Kaylene Hudson, Bob Guadarrama and colleagues, with an educational issac from [employer]. Thrive Questionnaire Date Thrive assessed: 12/05/24 I am a: Patient What is your living situation today?: I have a steady place to live Within the past 12 months, did the food you bought not last and you didn't have the money to get more?: Never true Within the past 12 months, did you worry whether your food would run out before you got money to buy more?: Never true Do you have trouble paying for medicines?: No Do you have trouble getting transportation to medical appointments?: No Do you have trouble paying your heating and electricity bill?: No Do you have trouble taking care of your child, family member or friend?: No Do you have trouble with day-to-day activities such as bathing, preparing meals, shopping, managing finances, etc.?: No Are you currently unemployed and looking for a job?: No Are you interested in more education?: No Please select the resources that you would like help with: None Currently or been in a relationship where the following occur: No concerns reported THRIVE Score: 0 AUDIT C Alcohol Use Questionnaire (AUDIT-C) 1. How often do you have a drink containing alcohol?: Monthly or less 2. How many drinks containing alcohol do you have on a typical day when you are drinking?: 1 or 2 3. How often do you have six or more drinks on one occasion?: Never Total Score: 1 Score Reviewed/Action Taken: Yes GAVI-7 AMB Questionnaire GAVI-7 Date GAVI - 7 assessed: 12/06/24 Feeling nervous, anxious, or on edge: 1 = Several days Not being able to stop or control worryin = Several days Worrying too much about different things: 1 = Several days Trouble relaxin = More than half the days Being so restless that it is hard to sit still: 0 = Not at all Becoming easily annoyed or irritable: 1 = Several days Feeling afraid as if something awful might happen: 0 = Not at all Total GAVI-7 score (0-4 normal; 5-9 mild; 10-14 moderate; 15-21 severe): 6 Source: Developed by Drs. Sinan Stevenson, Kaylene Hudson, Bob Guadarrama and colleagues, with an educational issac from [employer]. Physical exam (Primary Care) Vital Signs: Last Vital Signs Pulse 94 03/29/25 13:02 BP 116/82 03/29/25 13:02 Pulse Ox 96 03/29/25 13:02 Oxygen Delivery Method Room Air 03/29/25 13:02 BMI result Body Mass Index 42.2 Tobacco/Smoking Status: Tobacco use Status Tobacco use date assessed 03/29/25 03/29/25 13:04 Patient Tobacco Use Status Never used Tobacco 03/29/25 13:01 e-Cigarette/Vaping Use Never Used 03/29/25 13:01 PHQ-9: PHQ-9 Score PHQ-9: Total score 10 03/29/25 13:34 Thrive Assessment: Date of Thrive Assessment Date Thrive assessed 12/05/24 03/29/25 13:01 Currently or been in a relationship where the following occur: No concerns reported Coding Level of Care Code Est Pt Level 4 (79430) Complex EM visit Add On G2211 Diagnoses Bipolar 1 disorder F31.9 Attention deficit hyperactivity disorder (ADHD), predominantly inattentive type F90.0 Attention deficit-hyperactivity disorder type: predominantly inattentive Hypersomnia G47.10 Encounters for administrative purpose Z02.9 Assessment & Plan Assessment & Plan (1) Bipolar 1 disorder: Code(s): F31.9 - Bipolar disorder, unspecified Category: Medical (2) ADHD: Code(s): F90.9 - Attention-deficit hyperactivity disorder, unspecified type Category: Medical Qualifiers: Attention deficit-hyperactivity disorder type: predominantly inattentive Qualified Code(s): F90.0 - Attention-deficit hyperactivity disorder, predominantly inattentive type (3) Hypersomnia: Code(s): G47.10 - Hypersomnia, unspecified Category: Medical (4) Encounters for administrative purpose: Code(s): Z02.9 - Encounter for administrative examinations, unspecified Plan .
[2025-03-29 13:02] VITALS: BP 116/82; PULSE 94; O2SAT 96; BMI 42.2
== END 2025-03-29 14:01 | disposition home or self-care (01) ==
LOC: HO.HMCFM 12:59
PROVIDERS: PCP Physician Assistant; Visit Provider Nurse Practitioner Family
DX: F31.9 Bipolar disorder, unspecified (principal); F90.0 Attention-deficit hyperactivity disorder, predominantly inattentive type; G47.10 Hypersomnia, unspecified

== ENCOUNTER 2025-04-30 09:01 | Outpatient (REF) | payer OTHER, SELFPAY | END 2025-04-30 09:02 | disposition home or self-care (01) | LOC: HO.MAMMO 09:01 | PROVIDERS: PCP Nurse Practitioner Family; Visit Provider Advanced Practice Midwife | DX: Z12.31 Encounter for screening mammogram for malignant neoplasm of breast (principal) | CPT/HCPCS: 77063; 77067 ==

== ENCOUNTER → 2025-04-30 09:15 | Outpatient (BNV) | payer OTHER, SELFPAY | PROVIDERS: PCP Nurse Practitioner Family; Visit Provider Internal Medicine | DX: Z12.31 Encounter for screening mammogram for malignant neoplasm of breast (principal) | CPT/HCPCS: 77063; 77067 ==

== ENCOUNTER 2025-05-07 08:15 | Outpatient (REF) | payer OTHER, SELFPAY ==
[2025-05-07 09:32] LABS: Cholesterol 200 mg/dL (<200); HDL Cholesterol 64 mg/dL (>40); Triglycerides 188 mg/dL (<150)
== END 2025-05-07 08:16 | disposition home or self-care (01) ==
LOC: HO.LAB 08:15
PROVIDERS: PCP Nurse Practitioner Family; Visit Provider Nurse Practitioner Family
DX: E03.9 Hypothyroidism, unspecified (principal); E78.5 Hyperlipidemia, unspecified
CPT/HCPCS: 36415; 80061; 84443

== ENCOUNTER 2025-05-14 09:05 | Outpatient (AMB) | payer OTHER, SELFPAY ==
--- NOTE | 2025-05-14 09:08 | A.OFFPC_ITS ---
Vital Signs 05/14/25 09:11 Height 5 ft 3 in Weight 232 lb BMI 41.1 BP 120/70 Blood Pressure Location Lt brachial Position Sitting Respiration 12 Pulse 72 Pulse Source Pulse Oximeter Temp 97.2 F Temp Source Oral Pulse Oximetry (%) 99 Oxygen Delivery Method Room Air Intake Visit Reasons: 6 mo HLD thyroid Intake Note: 6 Months follow up on thyroid. 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 Allergies No Known Allergies (No Known Allergies*) Allergy (Verified 05/14/25 09:15) Medication List - Last Reconciled 05/14/25 by Antonia Jones, HOSTEL PARENT- atorvastatin 20 mg PO DAILY cholecalciferol (vitamin D3) 50 mcg PO DAILY clotrimazole-betamethasone 1-0.05 % 1 appl topical BID 7 days lamotrigine 200 mg PO DAILY levothyroxine 175 mcg PO DAILY lithium carbonate ER 450 mg PO BEDTIME multivitamin with iron 1 tab PO DAILY sertraline 25 mg PO DAILY sertraline 200 mg PO DAILY Tobacco use date assessed: 05/14/25 Dental Screening Dental Screen Date: 05/14/25 Did you have a dental visit in the last 12 months?: Yes Did you have a dental problem in the last 6 months where you did not have access to dental care?: No Was dental information given to patient?: Patient has dentist HPI HPI Comments History of Present Illness Details 49 y/o F with HLD, hypothyroid, ADHD, Bi polar, anemia, hx of gestatio nal DM, b12 def, lithium use, obesity, perimenopause s/p c section, anal fissure repair Fhx: Dad prostate Ca, etoh HLD, Mom HLD, Brother Etoh Mental hx on paternal side Social: getting a divorce, has Twins (Thomas and Zandra), works at [employer] [place] [place] [employer] 04/2025 Pap 2021 Cologaurd 2021, repeat 2024 cologuard completed 04/2025* waiting on report Tdap 2024, 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 Hyperlipidemia: - The patient is currently taking atorva statin 20 mg and has recently started taking citrus bergamot. - She switched to a gummy formulation of citrus bergamot as she has difficulty swallowing pills. - Recent lab results show her total chol esterol is down to 200 from 302 in 2022, and her LDL is at goal at 99. - Her HDL remains cardioprotective at 64 . Hypothyroidism: - The patient is currently taking levoth yroxine 175 mcg and is euthyroid based on recent labs from May 07. - Her TSH is 0.55, which is lower than h er previous level of 2.6 in January. - She reports feeling good and having a good energy level. Perimenopausal State: - The patient stopped taking contr ol pills in February and has not had a period since, which has been approximately three months. - She reports experiencing hot flashes. Mood: - The patient reports feeling better wit h the use of a full-spectrum light, which she has been using since after college. - She has FMLA which she has used once f or this condition. Preventative Care: - The patient recently completed a Colog uard test for colon cancer screening. - She had to reschedule a sleep study du e to illness. Review of Systems - Constitutional: Reports feeling well a nd has experienced some weight loss. - Endocrine: Reports hot flashes. - Genitourinary: Reports amenorrhea for the past three months since stopping control. - Musculoskeletal: Denies ankle swelling . - HEENT: Reports difficulty swallowing p ills. - Psychiatric: Reports good energy level s and improved sleep. - Reports significant financial stress. Physical Exam General: Well developed, well nourished, in no acute distress. Appears stated age. Head: Normocephalic, atraumatic. Eyes: Pupils are equal, round and reactive to light and accommodation. Conjunctivae are clear. Thyroid nontender Lungs: Clear to auscultation bilaterally. No rales, rhonchi or wheeze noted. Good air flow in all teague. Heart: Regular rate and rhythm. No murmurs, click, rubs or gallops are noted. Pulses: Peripheral pulses are equal and palpable bilaterally. Extremities: No clubbing, cyanosis nor edema is noted. No swelling in the ankles. Psych: Mood and affect appropriate. Results - Labs from May 07, 2025 show a TSH of 0.55, total cholesterol of 200, LDL of 99, and HDL of 64. - Cologuard test was recently completed, results are pending. Medical Decision Making The patient is a 49-year-old female who presented for a follow-up visit for hyperlipidemia and hypothyroidism. Her hypothyroidism is well-controlled on levothyroxine 175 mcg, with a recent TSH of 0.55, and she reports feeling well. Her hyperlipidemia has shown significant improvement, with her LDL now at goal at 99 on atorvastatin 20 mg and a citrus bergamot supplement, which she now takes in a gummy form due to dysphagia with pills. Given the stability and improvement of her chronic conditions, no changes to her current medication regimen are necessary at this time. The patient is likely in the perimenopausal transition, having stopped contraception three months ago and reporting subsequent amenorrhea and hot flashes. She was counseled on tracking her cycles and the importance of reporting any postmenopausal bleeding. For health maintenance, she has completed a Cologuard test and results are pending. A rescheduled sleep study is pending, and follow-up will occur once results are available. Repeat labs will be ordered before her next annual physical exam in November 2025 Plan 1. Hyperlipidemia - The patient's LDL is at goal at 99. - She will continue atorvastatin 20 mg a nd her citrus bergamot gummy supplement. - A repeat lipid panel will be ordered b efore her next visit. 2. Hypothyroidism - The patient is euthyroid with a TSH of 0.55 and feels well. - She will continue her current dose of levothyroxine 175 mcg. - TSH will be rechecked with routine lab s before her next visit. 3. Perimenopausal State - The patient has been amenorrheic for t hree months since stopping control and is experiencing hot flashes. - She was educated to annette the date of h er last period and advised that menopause is confirmed after 12 consecutive months without bleeding. - She was counseled that any postmenopau joi bleeding is a red flag and requires immediate evaluation. 4. Health Maintenance - Colon cancer screening: The patient co mpleted a Cologuard test, with results pending. - Sleep evaluation: She has a reschedule d sleep study pending. We will follow up on the results, potentially via a telehealth visit if therapy is indicated. - Follow-up: Patient will schedule a phy sical exam for November 2024. - Repeat labs will be ordered before the next visit. Patient Instructions - Continue taking your current medicatio ns, including atorvastatin 20 mg and levothyroxine 175 mcg, as we discussed. - You can continue taking the citrus yanni gamot in gummy form. - Continue to track your periods in your phone. Menopause is defined as one full year (366 days) without any bleeding at all. If you have even one drop of blood after that time, please call the office right away. - Continue to use your light therapy gonzalez p at work, as it seems to help your mood. - Keep taking your Vitamin D supplement. - We will follow up on the results of yo ur sleep study once it is completed. - An order for repeat lab work will be p laced for you to complete before your ne xt visit. - Please schedule your next visit, which will be a physical exam, for November of next year. Consent Patient was informed and verbally consented to the use of an ambient scribe for clinic note documentation during this visit. Total time spent caring for the patient today was 30 minutes. This includes time spent before the visit reviewing the chart, time spent during the visit, and time spent after the visit on documentation, reviewing laboratory results, diagnostic imaging, medications, performing a medically necessary evaluation, counseling on diagnoses, care coordination, ordering appropriate tests, ordering appropriate medications, review of tests performed by other providers, reporting test results with the patient, communication with other healthcare providers. [facility] Medical History Anxiety Breast lump on right side at 5 o'clock position Lateral epicondylitis, left elbow Patella-femoral syndrome ADHD Anemia History of depression Hypothyroid Surgical History History of colonoscopy (~2021) S/P anal fissurectomy Hx of section Family History Family/Other Breast cancer Father Substance abuse Brother Substance abuse Social History Household Members: Spouse and Family Household Members Other:: , and twins Both parents involved: No Caregiver staying overnight: No Housing: House Are you a primary chiropractic care to a significant other at home: No Do you presently have visiting nurse or other home services: No 75 years or older and lives alone: No Alcohol intake: current Alcohol intake frequency: a few times a month Patient Tobacco Use Status: Never used Tobacco e-Cigarette/Vaping Use: Never Used Second Hand Smoke Exposure: No Current occupational status: employed Current occupation: [employer] [place] Sexual orientation: Straight/Heterosexual Gender identity: Female Cognitive needs: No Hearing needs: No Vision needs: Yes (wear glasses) Female Reproductive History Menstrual Age of Menarche: 9 Questionnaire Thrive Questionnaire Date Thrive assessed: 12/05/24 I am a: Patient What is your living situation today?: I have a steady place to live Within the past 12 months, did the food you bought not last and you didn't have the money to get more?: Never true Within the past 12 months, did you worry whether your food would run out before you got money to buy more?: Never true Do you have trouble paying for medicines?: No Do you have trouble getting transportation to medical appointments?: No Do you have trouble paying your heating and electricity bill?: No Do you have trouble taking care of your child, family member or friend?: No Do you have trouble with day-to-day activities such as bathing, preparing meals, shopping, managing finances, etc.?: No Are you currently unemployed and looking for a job?: No Are you interested in more education?: No Please select the resources that you would like help with: None Currently or been in a relationship where the following occur: No concerns reported THRIVE Score: 0 GAVI-7 AMB Questionnaire GAVI-7 Date GAVI - 7 assessed: 12/06/24 Source: Developed by Drs. Sinan Stevenson, Kaylene Hudson, Bob Guadarrama and colleagues, with an educational issac from [employer]. Physical exam (Primary Care) Vital Signs: Last Vital Signs Temp 97.2 F 05/14/25 09:11 Pulse 72 05/14/25 09:11 Resp 12 05/14/25 09:11 BP 120/70 05/14/25 09:11 Pulse Ox 99 05/14/25 09:11 Oxygen Delivery Method Room Air 05/14/25 09:11 BMI result Body Mass Index 41.1 Tobacco/Smoking Status: Tobacco use Status Tobacco use date assessed 05/14/25 05/14/25 09:12 Patient Tobacco Use Status Never used Tobacco 05/14/25 09:08 e-Cigarette/Vaping Use Never Used 05/14/25 09:08 Thrive Assessment: Date of Thrive Assessment Date Thrive assessed 12/05/24 05/14/25 09:08 Currently or been in a relationship where the following occur: No concerns reported Results Reviewed Results Reviewed: Laboratory 05/07/25 Result Units Range Interpretation Provider Comments Triglycerides Level 188 mg/dL (<150) High Cholesterol Level 200 mg/dL (<200) High LDL Cholesterol, Calculated 99 mg/dL (<100) HDL Cholesterol 64 mg/dL (>40) Thyroid Stimulating Hormone (TSH) 0.55 uIU/mL (0.32-4.0) Coding Level of Care Code Est Pt Level 4 (56737) Complex EM visit Add On G2211 Diagnoses Acquired hypothyroidism E03.9 Hypothyroidism type: acquired Mixed hyperlipidemia E78.2 Hyperlipidemia type: mixed hyperlipidemia Perimenopause N95.1 Vitamin D deficiency E55.9 Bipolar 1 disorder F31.9 Assessment & Plan Assessment & Plan (1) Hypothyroid: Code(s): E03.9 - Hypothyroidism, unspecified Category: Medical Qualifiers: Hypothyroidism type: acquired Qualified Code(s): E03.9 - Hypothyroidism, unspecified (2) HLD (hyperlipidemia): Code(s): E78.5 - Hyperlipidemia, unspecified Category: Medical Qualifiers: Hyperlipidemia type: mixed hyperlipidemia Qualified Code(s): E78.2 - Mixed hyperlipidemia (3) Perimenopause: Comment: LMP 02/2025 Code(s): N95.1 - Menopausal and female climacteric states Category: Medical (4) Vitamin D deficiency: Code(s): E55.9 - Vitamin D deficiency, unspecified Category: Medical (5) Bipolar 1 disorder: Code(s): F31.9 - Bipolar disorder, unspecified Category: Medical Plan . Orders: Orders Complete Blood Count no Diff 11/08/25 E03.9 - Hypothyroidism, unspecified, E55.9 - Vitamin D deficiency, unspecified, Z00.00 - Encounter for general adult medical examination without abnormal findings TSH reflex Free T4 11/08/25 E03.9 - Hypothyroidism, unspecified, E55.9 - Vitamin D deficiency, unspecified, Z00.00 - Encounter for general adult medical examination without abnormal findings Vitamin D 25-OH Total 11/08/25 E03.9 - Hypothyroidism, unspecified, E55.9 - Vitamin D deficiency, unspecified, Z00.00 - Encounter for general adult medical examination without abnormal findings Comprehensive Met. Panel 11/08/25 E03.9 - Hypothyroidism, unspecified, E55.9 - Vitamin D deficiency, unspecified, Z00.00 - Encounter for general adult medical examination without abnormal findings Hemoglobin A1c 11/08/25 E03.9 - Hypothyroidism, unspecified, E55.9 - Vitamin D deficiency, unspecified, Z00.00 - Encounter for general adult medical examination without abnormal findings Lipid Panel 11/08/25 E03.9 - Hypothyroidism, unspecified, E55.9 - Vitamin D deficiency, unspecified, Z00.00 - Encounter for general adult medical examination without abnormal findings Microalbumin, Random (w Creat) 11/08/25 E03.9 - Hypothyroidism, unspecified, E55.9 - Vitamin D deficiency, unspecified, Z00.00 - Encounter for general adult medical examination without abnormal findings Vitamin B12 and Folate 11/08/25 E03.9 - Hypothyroidism, unspecified, E55.9 - Vitamin D deficiency, unspecified, Z00.00 - Encounter for general adult medical examination without abnormal findings
[2025-05-14 09:11] VITALS: BP 120/70; PULSE 72; RESP 12; TEMP 36.2; O2SAT 99; BMI 41.1
== END 2025-05-14 09:40 | disposition home or self-care (01) ==
LOC: HO.HMCFM 09:05
PROVIDERS: PCP Nurse Practitioner Family; Visit Provider Nurse Practitioner Family
DX: E03.9 Hypothyroidism, unspecified (principal); F31.9 Bipolar disorder, unspecified; E78.2 Mixed hyperlipidemia; N95.1 Menopausal and female climacteric states; E55.9 Vitamin D deficiency, unspecified

== ENCOUNTER 2025-05-28 07:30 | Outpatient (AMB) | payer OTHER, SELFPAY ==
[2025-05-28 07:34] VITALS: BP 114/68; PULSE 92; TEMP 36.4; O2SAT 95; BMI 41.6
--- NOTE | 2025-05-28 07:34 | MHC.PC.OV ---
Vital Signs 05/28/25 07:34 Height 5 ft 3 in Weight 235 lb BMI 41.6 BP 114/68 Blood Pressure Location Lt brachial Pulse 92 Pulse Source Auscultation Temp 97.6 F Temp Source Oral Pulse Oximetry (%) 95 Oxygen Delivery Method Room Air Intake Visit Reasons: Right ear fullness Financial Services Agent Required: No Allergies No Known Allergies (No Known Allergies*) Allergy (Verified 05/28/25 07:36) Medication List - Last Reconciled 05/28/25 by MARLON Thomas- atorvastatin 20 mg PO DAILY cholecalciferol (vitamin D3) 50 mcg PO DAILY clotrimazole-betamethasone 1-0.05 % 1 appl topical BID 7 days fluticasone propionate 50 mcg/actuation (Flonase Allergy Relief) 1 spray intranasal BID lamotrigine 200 mg PO DAILY levothyroxine 175 mcg PO DAILY lithium carbonate ER 450 mg PO BEDTIME multivitamin with iron 1 tab PO DAILY sertraline 25 mg PO DAILY sertraline 200 mg PO DAILY Tobacco use date assessed: 05/14/25 Dental Screening Dental Screen Date: 05/14/25 HPI HPI Comments History of Present Illness Details 49 y/o F with HLD, hypothyroid, ADHD, Bipolar, anemia, hx of gestational DM, b12 def, lithium use, obesity, perimenopause s/p c section, anal fissure repair Fhx: Dad prostate Ca, etoh HLD, Mom HLD, Brother Etoh Mental hx on paternal side Social: getting a divorce, has Twins (Thomas and Zandra), works at [employer] [place] Health 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 Reports that for the last week or so she developed nasal congestion without pain followed by a sensation of fullness in her right ear. Denies any fever, chills, cough. Admits some mild hoarseness to her voice from what feels like postnasal drip. She has not tried any medication at home to alleviate her symptoms. Lying on the right side increases the sensation of fullness in the right ear. Exam: Awake alert NAD Sclera and conjunctiva clear bilat Nares patent, turbinates within normal limits, no sinus tenderness with palpation bilat TM intact bilat, trace fluid behind L TM; mild fullness/dullness to TM MMM, pharynx WNL Plan: She has what looks like Eustachian tube dysfunction. The recommendation will be to use Flonase 1 spray each nostril twice per day to alleviate her symptoms. If the right ear symptoms increase or become worse I have advised for her to reach out and let me know at that time I can consider antibiotics. [facility] Medical History (Updated 05/14/25 @ 09:32 by MARLON Thomas-KAREN) ADHD Anemia Anxiety Breast lump on right side at 5 o'clock position History of depression Hypothyroid Lateral epicondylitis, left elbow Patella-femoral syndrome Surgical History (Updated 05/17/25 @ 07:01 by JAYME Thomas) History of colonoscopy (~05/2025) Hx of section S/P anal fissurectomy Family History Family/Other Breast cancer Father Substance abuse Brother Substance abuse Social History Household Members: Spouse and Family Household Members Other:: , and twins Both parents involved: No Caregiver staying overnight: No Housing: House Are you a primary career services coordinator to a significant other at home: No Do you presently have visiting nurse or other home services: No 75 years or older and lives alone: No Alcohol intake: current Alcohol intake frequency: a few times a month Patient Tobacco Use Status: Never used Tobacco e-Cigarette/Vaping Use: Never Used Second Hand Smoke Exposure: No Current occupational status: employed Current occupation: [employer] [place] Sexual orientation: Straight/Heterosexual Gender identity: Female Cognitive needs: No Hearing needs: No Vision needs: Yes (wear glasses) Female Reproductive History Menstrual Age of Menarche: 9 Questionnaire Thrive Questionnaire Date Thrive assessed: 12/05/24 I am a: Patient What is your living situation today?: I have a steady place to live Within the past 12 months, did the food you bought not last and you didn't have the money to get more?: Never true Within the past 12 months, did you worry whether your food would run out before you got money to buy more?: Never true Do you have trouble paying for medicines?: No Do you have trouble getting transportation to medical appointments?: No Do you have trouble paying your heating and electricity bill?: No Do you have trouble taking care of your child, family member or friend?: No Do you have trouble with day-to-day activities such as bathing, preparing meals, shopping, managing finances, etc.?: No Are you currently unemployed and looking for a job?: No Are you interested in more education?: No Please select the resources that you would like help with: None Currently or been in a relationship where the following occur: No concerns reported THRIVE Score: 0 GAVI-7 AMB Questionnaire GAVI-7 Date GAVI - 7 assessed: 12/06/24 Source: Developed by Drs. Sinan Stevenson, Kaylene Hudson, Bob Guadarrama and colleagues, with an educational issac from [employer]. Physical exam (Primary Care) Vital Signs: Last Vital Signs Temp 97.6 F 05/28/25 07:34 Pulse 92 05/28/25 07:34 BP 114/68 05/28/25 07:34 Pulse Ox 95 05/28/25 07:34 Oxygen Delivery Method Room Air 05/28/25 07:34 BMI result Body Mass Index 41.6 Tobacco/Smoking Status: Tobacco use Status Tobacco use date assessed 05/14/25 05/28/25 07:38 Patient Tobacco Use Status Never used Tobacco 05/28/25 07:38 e-Cigarette/Vaping Use Never Used 05/28/25 07:38 Thrive Assessment: Date of Thrive Assessment Date Thrive assessed 12/05/24 05/28/25 07:38 Currently or been in a relationship where the following occur: No concerns reported Coding Level of Care Code Est Pt Level 3 (94901) Complex EM visit Add On G2211 Diagnoses Dysfunction of right eustachian tube H69.91 Assessment & Plan Assessment & Plan (1) Dysfunction of right eustachian tube: Code(s): H69.91 - Unspecified Eustachian tube disorder, right ear Plan . Medications: New fluticasone propionate 50 mcg/actuation (Flonase Allergy Relief) administer into each nostril 1 spray intranasal BID 16 grams 2RF
== END 2025-05-28 08:07 | disposition home or self-care (01) ==
LOC: HO.HMCFM 07:30
PROVIDERS: PCP Nurse Practitioner Family; Visit Provider Nurse Practitioner Family
DX: H69.91 Unspecified Eustachian tube disorder, right ear (principal)

== ENCOUNTER → 2025-06-03 13:20 | Outpatient (REF) | payer OTHER, SELFPAY | LOC: HO.SL 13:20 | PROVIDERS: PCP Nurse Practitioner Family; Visit Provider Nurse Practitioner Family | DX: R06.83 Snoring (principal); G47.10 Hypersomnia, unspecified; E66.01 Morbid (severe) obesity due to excess calories | CPT/HCPCS: 95806 ==

== ENCOUNTER → 2025-06-03 13:45 | Outpatient (BNV) | payer OTHER, SELFPAY | PROVIDERS: PCP Nurse Practitioner Family; Visit Provider Psychiatry & Neurology Neurology | DX: G47.33 Obstructive sleep apnea (adult) (pediatric) (principal) | CPT/HCPCS: 95806 ==

== ENCOUNTER 2025-06-20 14:35 | Outpatient (AMB) | payer OTHER, SELFPAY ==
--- NOTE | 2025-06-20 07:36 | MHC.PC.OV ---
Intake Visit Reasons: telehealth to review sleep stud results Intake Note: Sleep study results Manager Administrative Services Required: No Allergies No Known Allergies (No Known Allergies*) Allergy (Verified 06/20/25 16:06) Medication List - Last Reconciled 06/20/25 by Antonia Jones, [facility]- atorvastatin 20 mg PO DAILY cholecalciferol (vitamin D3) 50 mcg PO DAILY clotrimazole-betamethasone 1-0.05 % 1 appl topical BID 7 days fluticasone propionate 50 mcg/actuation (Flonase Allergy Relief) 1 spray intranasal BID lamotrigine 200 mg PO DAILY levothyroxine 175 mcg PO DAILY lithium carbonate ER 450 mg PO BEDTIME nlbvvyqaadfu-lsow-edwuf acid 18-400 mg-mcg (Tab-A-Jeremy Multivitamin w-iron) 1 tab PO DAILY sertraline 25 mg PO DAILY sertraline 200 mg PO DAILY Tobacco use date assessed: 06/20/25 Dental Screening Dental Screen Date: 05/14/25 HPI HPI Comments History of Present Illness Details 49 y/o F with HLD, hypothyroid, ADHD, Bipolar, anemia, hx of gestational DM, b12 def, lithium use, obesity, perimenopause, EVELINE on CPAP s/p c section, anal fissure repair Fhx: Dad prostate Ca, etoh HLD, Mom HLD, Brother Etoh Mental hx on paternal side Social: getting a divorce, has Twins (Thomas and Zandra), works at [employer] [place] [facility] [employer] 04/2025 Pap 2021 Cologaurd 2021, repeat 2024 cologuard completed 04/2025* waiting on report Tdap 2024, FLu at work 2024 Sleep study 05/2025 [facility] History of Present Illness The patient is a 49-year-old female presenting for a telehealth visit to review her sleep study results. Moderate Obstructive Sleep Apnea: - The patient complains of feeling tired and exhausted all the time, wanting to nap, and almost fell asleep at her desk. - She also reports an episode of word-finding difficulty, being unable to recall the word for sandwich . - A recent sleep study from 06/03/25 showed moderate obstructive sleep apnea with an Apnea-Hypopnea Index (AHI) of 20.3. - The study detected 108 obstructive respiratory events and 2 non-significant central respiratory events. - Oxygen saturation dropped below 90% for 2.9% of the total time, which was noted to be mild deoxygenation and not clinically significant. 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 Review of Systems - General: Reports feeling tired and exhausted all the time. - Neurological: Reports an episode of word-finding difficulty. - Musculoskeletal: Reports straining a muscle in her shoulder and gluteal region while rolling over in bed. Physical Exam - Constitutional:Limited exam, seated at desk, awake, alert, conversant Results - Sleep Study (06/03/25): Revealed moderate obstructive sleep apnea with an Apnea-Hypopnea Index (AHI) of 20.3. - Respiratory Events: 108 obstructive events and 2 central events were detected. - Oxygen Saturation: Dropped below 90% for 2.9% of the total time. Assessment and Plan 1. Moderate Obstructive Sleep Apnea - The patient's sleep study confirmed moderate obstructive sleep apnea with an AHI of 20.3, 108 obstructive events, and mild, non-clinically significant oxygen desaturation. - These findings are the cause of her significant daytime fatigue. - The plan is to initiate CPAP therapy. - Orders will be sent to [facility], the preferred DME provider. - The patient was counseled on the importance of compliance, which is defined as using the machine for four hours a night for 70% of nights in a 30-day period. - Remote monitoring will occur via an claude, and a compliance report will be sent to the provider. - The patient was advised she can choose any type of mask and that humidification is encouraged to prevent dryness. - She was instructed to contact [facility] for any adjustments needed and to be persistent with them if necessary. - A follow-up telehealth or in-person visit will be scheduled in approximately 90 days (around the end of September) to review CPAP compliance and efficacy. Patient was given time to ask questions. All questions were answered to their satisfaction. Telehealth Attestation This visit was conducted via telehealth. The patient has been explained that this is an interactive (audio/video) telehealth encounter and what that consists of. The patient understands and wishes to proceed. APX platform was used. Total time spent caring for the patient today was 21 minutes. This includes time spent before the visit reviewing the chart, time spent during the visit, and time spent after the visit on documentation, reviewing laboratory results, diagnostic imaging, medications, performing a medically necessary evaluation, counseling on diagnoses, care coordination, ordering appropriate tests, ordering appropriate medications, review of tests performed by other providers, reporting test results with the patient, communication with other healthcare providers. [facility] Medical History (Updated 06/20/25 @ 16:06 by JAYME Thomas) ADHD Anemia Anxiety Breast lump on right side at 5 o'clock position History of depression Hypothyroid Lateral epicondylitis, left elbow Patella-femoral syndrome Surgical History (Updated 05/17/25 @ 07:01 by JAYME Thomas) History of colonoscopy (~05/2025) Hx of section S/P anal fissurectomy Family History Family/Other Breast cancer Father Substance abuse Brother Substance abuse Social History Household Members: Spouse and Family Household Members Other:: , and twins Both parents involved: No Caregiver staying overnight: No Housing: House Are you a primary career orientation teacher to a significant other at home: No Do you presently have visiting nurse or other home services: No 75 years or older and lives alone: No Alcohol intake: current Alcohol intake frequency: a few times a month Patient Tobacco Use Status: Never used Tobacco e-Cigarette/Vaping Use: Never Used Second Hand Smoke Exposure: No Current occupational status: employed Current occupation: [employer] [place] Sexual orientation: Straight/Heterosexual Gender identity: Female Cognitive needs: No Hearing needs: No Vision needs: Yes (wear glasses) Female Reproductive History Menstrual Age of Menarche: 9 Questionnaire Thrive Questionnaire Date Thrive assessed: 12/05/24 I am a: Patient What is your living situation today?: I have a steady place to live Within the past 12 months, did the food you bought not last and you didn't have the money to get more?: Never true Within the past 12 months, did you worry whether your food would run out before you got money to buy more?: Never true Do you have trouble paying for medicines?: No Do you have trouble getting transportation to medical appointments?: No Do you have trouble paying your heating and electricity bill?: No Do you have trouble taking care of your child, family member or friend?: No Do you have trouble with day-to-day activities such as bathing, preparing meals, shopping, managing finances, etc.?: No Are you currently unemployed and looking for a job?: No Are you interested in more education?: No Please select the resources that you would like help with: None Currently or been in a relationship where the following occur: No concerns reported THRIVE Score: 0 AUDIT C Alcohol Use Questionnaire (AUDIT-C) 1. How often do you have a drink containing alcohol?: Never 3. How often do you have six or more drinks on one occasion?: Never Total Score: 0 GAVI-7 AMB Questionnaire GAVI-7 Date GAVI - 7 assessed: 12/06/24 Source: Developed by Drs. Sinan Stevenson, Kaylene Hudson, Bob Guadarrama and colleagues, with an educational issac from [employer]. Physical exam (Primary Care) Tobacco/Smoking Status: Tobacco use Status Tobacco use date assessed 06/20/25 06/20/25 14:34 Patient Tobacco Use Status Never used Tobacco 06/20/25 07:36 e-Cigarette/Vaping Use Never Used 06/20/25 07:36 Thrive Assessment: Date of Thrive Assessment Date Thrive assessed 12/05/24 06/20/25 07:36 Currently or been in a relationship where the following occur: No concerns reported Telehealth Telehealth Telehealth Platform: [facility] Location of provider rendering services: practice address Location of patient: address on file Patient Identification confirmed using: Name, : Yes Telehealth method: video Patient verbally consented to treatment: Yes Patient verbally consented to billing insurance company: Yes Patient informed of any privacy concerns related to visit: Yes Minutes spent on Phone/Video with Pt.: 12 Results Reviewed Results Reviewed: Coding Level of Care Code Tele Est Pt Level 3 (58016) Add On Problem Visit Only Diagnoses EVELINE (obstructive sleep apnea) G47.33 Assessment & Plan Assessment & Plan (1) EVELINE (obstructive sleep apnea): Onset Date: ~05/2025 Comment: Sleep study 06/03/25 06/20/25 start CPAP [facility] DME Compliance due 09/2024 Code(s): G47.33 - Obstructive sleep apnea (adult) (pediatric) Category: Medical Plan . Medications: New CPAP (CPAP Machine/Device) As directed 1 ea 0RF
== END 2025-06-20 16:03 | disposition home or self-care (01) ==
LOC: HO.HMCFM 14:35
PROVIDERS: PCP Nurse Practitioner Family; Visit Provider Nurse Practitioner Family
DX: G47.33 Obstructive sleep apnea (adult) (pediatric) (principal)